=== PATIENT | female | born 1990 | race Caucasian/White ===

== ENCOUNTER 2018-04-10 09:25 | Outpatient (CLI) | payer OTHER ==
[2018-04-10 09:59] VITALS: BP 99/59
[2018-04-10 12:09] LABS: BILIRUBIN,URINE NEGATIVE (NEGATIVE); GLUCOSE, URINE (UA) NEGATIVE (NEGATIVE); KETONES,URINE (UA) NEGATIVE (NEGATIVE); LEUKOCYTE ESTERASE, URINE SMALL (NEGATIVE); NITRITE,URINE NEGATIVE (NEGATIVE); OCCULT BLOOD,URINE LARGE (NEGATIVE); PROTEIN,URINE NEGATIVE (NEGATIVE); UROBILINOGEN,URINE 1 (NORMAL) E.U./dL (NORMAL)
[2018-04-10 12:21] LABS: CLARITY,URINE CLEAR (CLEAR)
[2018-04-10 12:29] LABS: BACTERIA,URINE Rare /HPF (None Seen); SQUAMOUS EPITHELIAL CELL,UR RARE Squamous (<= Few)
--- NOTE | 2018-04-10 12:35 | Ultrasound Report ---
Reason: vaginal bleedinga at 30.2 weeks gestation Procedure Date: 04/10/2018 Accession Number: [id number] / [id number] Procedure: US - OB Limited CPT Code: FULL RESULT: EXAM: LIMITED OBSTETRICAL ULTRASOUND EXAM DATE: 04/10/2018 11:33 AM. CLINICAL HISTORY: Vaginal bleedinga at 30. 2 weeks gestation. COMPARISON: None. TECHNIQUE: Real-time sonographic evaluation of the fetus performed by the blade grinder. Multiple area representative static images were saved for review. DATING: Established EGA 30 weeks 1 day with KATELYNN 06/18/2018. GENERAL EVALUATION Bruce . Cardiac activity: 144 bpm. movement: Visualized. Presentation: Cephalic. Placenta: Posterior and fundal position. Amniotic fluid: Normal. MAYELIN 13.9 cm. MVP 4.4 cm. ANATOMY Not evaluated MATERNAL STRUCTURES Cervix is closed measuring 6.0 cm. IMPRESSION: No placental previa RADIA
== END 2018-04-10 12:50 | disposition home or self-care (01) ==
LOC: WFO 09:25 → FBP 09:28 → WFO 12:50
PROVIDERS: ATTEND Obstetrics & Gynecology
DX: Z34.83 Encounter for supervision of other normal pregnancy, third trimester (principal)
CPT/HCPCS: 76815; 81001; 81003; 87797; 99213

== ENCOUNTER 2018-05-15 15:01 | Outpatient (CLI) | payer OTHER ==
[2018-05-15 15:17] LABS: HGB - HEMOGLOBIN 11.5 g/dL (12.0-16.0); MEAN CORPUSCULAR HEMOGLOBIN 30.7 pg (27.0-31.0); MEAN CORPUSCULAR HGB CONC 34.8 g/dL (32.0-36.0); MEAN PLATELET VOLUME 8.2 fL (7.9-10.8); RED BLOOD COUNT 3.74 10^6/uL (4.20-5.40); RED CELL DISTRIBUTION WIDTH 13.2 % (12.0-15.0); WHITE BLOOD COUNT 11.1 x10^3/uL (4.8-10.8)
[2018-05-15 15:26] LABS: ALBUMIN 3.1 g/dL (3.2-5.5); ALBUMIN/GLOBULIN RATIO 0.8 (1.0-2.2); BILIRUBIN,TOTAL 0.4 mg/dL (0.2-1.0); CALCIUM 8.6 mg/dL (8.5-10.3); CREATININE 0.4 mg/dL (0.4-1.0); TOTAL PROTEIN 6.8 g/dL (6.7-8.2)
[2018-05-15 15:28] LABS: INR 1.1 (0.8-1.2); PT - PROTHROMBIN TIME 11.8 secs (9.9-12.6)
== END 2018-05-15 15:02 | disposition home or self-care (01) ==
LOC: LAB 15:01
PROVIDERS: ATTEND Nurse Practitioner Obstetrics & Gynecology
DX: R10.30 Lower abdominal pain, unspecified (principal)
CPT/HCPCS: 36415; 80053; 85027; 85384; 85610; 85730

== ENCOUNTER 2018-05-15 22:45 | Outpatient (CLI) | payer OTHER ==
--- NOTE | 2018-05-16 00:52 | Ultrasound Report ---
Reason: ABDOMINAL PAIN, LOWER Procedure Date: 05/15/2018 Accession Number: [id number] / [id number] Procedure: US - OB Limited CPT Code: FULL RESULT: EXAM: LIMITED OBSTETRICAL ULTRASOUND EXAM DATE: 05/15/2018 11:49 PM. CLINICAL HISTORY: ABDOMINAL PAIN, LOWER. COMPARISON: OB LIMITED 04/10/2018 11:15 AM. TECHNIQUE: Real-time sonographic evaluation of the fetus performed by the unemployment specialist. Multiple u.s. representative static images were saved for review. DATING: Established EGA 35 weeks 1 day with KATELYNN 06/18/2018. GENERAL EVALUATION Bruce . Cardiac activity: 163 bpm. movement: Visualized. Presentation: Cephalic. Placenta: Posterior position. Visualization limited by overlying fetus, but no evidence of placental abruption appreciated. No placenta previa. Amniotic fluid: Normal. MAYELIN 16.6 cm. MVP 5.4 cm. MATERNAL STRUCTURES The cervix measures 5 cm, and is closed. No free fluid. IMPRESSION: 1. Bruce live intrauterine with gestational age 35 weeks 1 day based on established KATELYNN. 2. No evidence of placenta previa or abruption. RADIA ADDENDUM: 05/16/18 01:02 The above findings were discussed with Dr Johnson by Dr. Neftali Sinclair at 12:45 AM on 05/16/2018.
== END 2018-05-15 22:46 | disposition home or self-care (01) ==
LOC: DI 22:45
PROVIDERS: ATTEND Nurse Practitioner Obstetrics & Gynecology
DX: O99.89 Other specified diseases and conditions complicating pregnancy, childbirth and the puerperium (principal); R10.30 Lower abdominal pain, unspecified; Z3A.35 35 weeks gestation of pregnancy
CPT/HCPCS: 76815

== ENCOUNTER 2018-05-20 11:37 | Outpatient (CLI) | payer OTHER ==
[2018-05-20 12:18] VITALS: BP 95/57
[2018-05-20 13:09] LABS: BILIRUBIN,URINE NEGATIVE (NEGATIVE); GLUCOSE, URINE (UA) NEGATIVE (NEGATIVE); KETONES,URINE (UA) NEGATIVE (NEGATIVE); LEUKOCYTE ESTERASE, URINE SMALL (NEGATIVE); NITRITE,URINE NEGATIVE (NEGATIVE); OCCULT BLOOD,URINE SMALL (NEGATIVE); PH,URINE 6.5 PH (5.0-7.5); PROTEIN,URINE TRACE mg/dL (NEGATIVE); UROBILINOGEN,URINE 2 E.U./dL (NORMAL)
[2018-05-20 13:17] LABS: BACTERIA,URINE None Seen /HPF (None Seen); CLARITY,URINE CLEAR (CLEAR); SQUAMOUS EPITHELIAL CELL,UR RARE Squamous (<= Few)
--- NOTE | 2018-05-20 14:28 | PROVIDER PROGRESS NOTE ---
Subjective - Subjective Subjective: Pt presents today WHFBP with c/o constant pelvic and perineal pain which rad iates down her legs and into her back. She denies urinary symptoms. She denies vaginal bleeding or LOF. Reports +FM. She states she has been drinking an adequate amount of fluid. Upon her arrival to L&D she states the pain at her umbilicus has nearly resolved and feels like less of an issue. She feels that her baby's head is very low in her pelvis. NST reactive - baseline 155, moderate variability, + accels, no decels. Contractions palpate mild every 6-9 minutes with soft resting tone. UA with culture if indicated ordered. Advised patient to keep phone on her so we can call her if she requires medication for management. Will initiate referral to PT. Advised increased fluid intake and rest. Advised consistent use of maternity support belt. Pt verbalized understanding and agrees to above plan. She denies further questions or concerns at this time. She was released home with precautions. Objective - Vital Signs/Intake & Output Vital Signs: Vital Signs x48h Temp Pulse Resp BP Pulse Ox 05/20/18 11:50 36.8 C 105 H 16 95/57 L 99 - Lab Results Other Labs: Lab Results x24hrs 05/20/18 Range/Units 12:35 Urine Color YELLOW Urine Clarity CLEAR (CLEAR) Urine pH 6.5 (5.0-7.5) PH Ur Specific [place] 1.020 (1.002-1.030) Urine Protein TRACE (NEGATIVE) mg/dL Urine Glucose (UA) NEGATIVE (NEGATIVE) mg/dL Urine Ketones NEGATIVE (NEGATIVE) mg/dL Urine Occult Blood SMALL H (NEGATIVE) Urine Nitrite NEGATIVE (NEGATIVE) Urine Bilirubin NEGATIVE (NEGATIVE) Urine Urobilinogen 2 H (NORMAL) E.U./dL Ur Leukocyte Esterase SMALL H (NEGATIVE) Urine RBC 6-10 H (0-5) /HPF Urine WBC 11-25 H (0-5) /HPF Ur Squamous Epith Cells RARE Squamous (<= Few) Urine Bacteria None Seen (None Seen) /HPF Urine Culture Comments INDICATED
== END 2018-05-20 12:35 | disposition home or self-care (01) ==
LOC: WFO 11:37 → FBP 11:38 → WFO 12:35
PROVIDERS: ATTEND Nurse Practitioner Obstetrics & Gynecology
DX: O47.1 False labor at or after 37 completed weeks of gestation (principal); O99.89 Other specified diseases and conditions complicating pregnancy, childbirth and the puerperium; R10.2 Pelvic and perineal pain; M79.605 Pain in left leg; M79.604 Pain in right leg; Z3A.37 37 weeks gestation of pregnancy
CPT/HCPCS: 81001; 87086; 99212

== ENCOUNTER 2018-05-22 15:27 | Outpatient (CLI) | payer OTHER ==
[2018-05-22 16:04] LABS: CREATININE 0.4 mg/dL (0.4-1.0); URIC ACID 4.1 mg/dL (2.6-7.2)
[2018-05-22 16:07] LABS: BILIRUBIN,URINE NEGATIVE (NEGATIVE); GLUCOSE, URINE (UA) NEGATIVE (NEGATIVE); KETONES,URINE (UA) NEGATIVE (NEGATIVE); LEUKOCYTE ESTERASE, URINE MODERATE (NEGATIVE); NITRITE,URINE NEGATIVE (NEGATIVE); OCCULT BLOOD,URINE SMALL (NEGATIVE); PROTEIN,URINE 30 mg/dL (NEGATIVE); UROBILINOGEN,URINE 2 E.U./dL (NORMAL)
[2018-05-22 16:09] LABS: CLARITY,URINE CLOUDY (CLEAR)
[2018-05-22 16:37] LABS: BACTERIA,URINE Many /HPF (None Seen); MUCUS,URINE Few Strands; SQUAMOUS EPITHELIAL CELL,UR FEW Squamous (<= Few)
[2018-05-23 13:02] LABS: HEPATITIS C ANTIBODY NON-REACTIVE (NON-REACTIVE)
[2018-05-23 14:14] LABS: HIV AG/AB 4TH GEN NON-REACTIVE (NON-REACTIVE)
== END 2018-05-22 15:28 | disposition home or self-care (01) ==
LOC: LAB 15:27
PROVIDERS: ATTEND Registered Nurse
DX: R03.0 Elevated blood-pressure reading, without diagnosis of hypertension (principal); R10.30 Lower abdominal pain, unspecified; Z34.90 Encounter for supervision of normal pregnancy, unspecified, unspecified trimester; R82.79 Other abnormal findings on microbiological examination of urine
CPT/HCPCS: 36415; 81001; 81599; 82565; 83615; 84450; 84550; 86592; 86803; 87086; 87389

== ENCOUNTER 2018-05-23 08:00 | Outpatient (CLI) | payer OTHER | END 2018-05-23 23:59 | disposition home or self-care (01) | LOC: LAB.R 08:00 | PROVIDERS: ATTEND Registered Nurse | DX: Z34.90 Encounter for supervision of normal pregnancy, unspecified, unspecified trimester (principal) | CPT/HCPCS: 87491; 87591; 87797 ==

== ENCOUNTER 2018-05-24 08:00 | Outpatient (CLI) | payer OTHER ==
[2018-05-24 13:28] LABS: BILIRUBIN,URINE NEGATIVE (NEGATIVE); GLUCOSE, URINE (UA) NEGATIVE (NEGATIVE); KETONES,URINE (UA) NEGATIVE (NEGATIVE); LEUKOCYTE ESTERASE, URINE SMALL (NEGATIVE); NITRITE,URINE NEGATIVE (NEGATIVE); OCCULT BLOOD,URINE MODERATE (NEGATIVE); PROTEIN,URINE TRACE mg/dL (NEGATIVE); UROBILINOGEN,URINE 2 E.U./dL (NORMAL)
[2018-05-24 13:31] LABS: CLARITY,URINE HAZY (CLEAR)
[2018-05-24 13:39] LABS: CREATININE,URINE 127.2 mg/dL; PROTEIN/CREATININE RATIO,URINE 0.4 (<=0.2)
[2018-05-24 13:41] LABS: SQUAMOUS EPITHELIAL CELL,UR FEW Squamous (<= Few)
[2018-05-24 13:42] LABS: BACTERIA,URINE Moderate /HPF (None Seen); CRYSTALS,URINE 0-2 Calcium Oxalate /LPF
== END 2018-05-24 23:59 | disposition home or self-care (01) ==
LOC: LAB.R 08:00
PROVIDERS: ATTEND Registered Nurse
DX: R10.30 Lower abdominal pain, unspecified (principal); R03.0 Elevated blood-pressure reading, without diagnosis of hypertension
CPT/HCPCS: 81001; 82570; 84156; 87086

== ENCOUNTER 2018-05-25 11:38 | Outpatient (CLI) | payer OTHER ==
[2018-05-25] MEDS ORDERED: ACETAMINOPHEN 500 MG TABLET PO ONE (12:08)
[2018-05-25] MEDS ORDERED: LACTATED RINGERS 1,000 ML IV ONE (12:14)
[2018-05-25] MEDS ORDERED: SODIUM CHLORIDE FLUSH 0.9% 10 ML SYRINGE ONE ×2 (12:17→15:31)
[2018-05-25 13:46] VITALS: BP 104/61
[2018-05-25 14:07] LABS: BASOPHILS % (AUTO) 0.4 %; EOSINOPHILS % (AUTO) 0.3 %; HGB - HEMOGLOBIN 10.8 g/dL (12.0-16.0); LYMPHOCYTES # (AUTO) 1.1 10^3/uL (1.5-3.5); LYMPHOCYTES % (AUTO) 13.6 %; MEAN CORPUSCULAR HEMOGLOBIN 30.6 pg (27.0-31.0); MEAN CORPUSCULAR HGB CONC 35.7 g/dL (32.0-36.0); MEAN CORPUSCULAR VOLUME 85.8 fL (81.0-99.0); MEAN PLATELET VOLUME 8.5 fL (7.9-10.8); MONOCYTES # (AUTO) 0.5 10^3/uL (0.0-1.0); MONOCYTES % (AUTO) 5.7 %; NEUTROPHILS # (AUTO) 6.7 10^3/uL (1.5-6.6); PLT - PLATELET COUNT 141 10^3/uL (130-450); RED BLOOD COUNT 3.54 10^6/uL (4.20-5.40); RED CELL DISTRIBUTION WIDTH 12.8 % (12.0-15.0); WHITE BLOOD COUNT 8.3 x10^3/uL (4.8-10.8)
[2018-05-25 14:21] LABS: ALBUMIN 2.6 g/dL (3.2-5.5); ALBUMIN/GLOBULIN RATIO 0.8 (1.0-2.2); ALKALINE PHOSPHATASE 150 IU/L (42-121); ALT ALANINE AMINOTRANSFERASE < 10 IU/L (10-60); AST ASPARTATE AMINOTRANSFERASE 15 IU/L (10-42); BILIRUBIN,TOTAL 0.7 mg/dL (0.2-1.0); BUN - BLOOD UREA NITROGEN 5 mg/dL (6-20); CALCIUM 8.4 mg/dL (8.5-10.3); CARBON DIOXIDE - CO2 24 mmol/L (21-32); CHLORIDE 103 mmol/L (101-111); CREATININE 0.4 mg/dL (0.4-1.0); GFR - MDRD 191 (>89); GLUCOSE 99 mg/dL (70-100); SODIUM 136 mmol/L (135-145); TOTAL PROTEIN 5.8 g/dL (6.7-8.2)
[2018-05-25 14:58] LABS: CREATININE,URINE 16.4 mg/dL
[2018-05-25 15:12] LABS: TOTAL PROTEIN,URINE TIMED < 6 mg/dL
[2018-05-25] MEDS ORDERED: HYDROcod/ACETAM 5/325 MG TABLET PO ONE (15:30)
--- NOTE | 2018-05-26 08:21 | PROCEDURE REPORT ---
Hospitalist Procedure Note - Procedure Note Procedure Note: 05/25/2018 NST Dx: 1. Proteinuria 2. False labor 3. Urinary tract infection - acute 4. Tachycardia 5. Headache 1. Pt had episode of moderately elevated BP to 130/92 in the office 05/22/2018. Pt reports she has had proteinuria since before her transfer to care at [facility]. She was advised to present to [facility] for [facility] labs as a precaution. This incident of HTN in the office was an isolated incident and there are no other incidents of HTN documented in her . Serial blood pressures 05/25/2018 104-129/61-84. 05/22/2018 Labs: Cr. 0.4 Uric Acid 4.1 AST 17 LDH 144 05/24/2018 24 hour Urine: Total protein 357 Protein/creatinine ratio 0.4 05/25/2018 Labs: Hgb 10.8 Hcg 30.4 PLT 141 Creatinine 0.4 Uric acid 3.8 ASL 15 ALT <10 Protein/creatinine ratio -not reportable 2. NST reactive FHR baseline 140s, moderate variability, + accels, no decels Intermittent contractions with back discomfort. Pt declines SVE. 3. Urinalysis shows urinary tract infection with culture >100,000 CFU. Pt denies urinary symptoms. No CVA tenderness upon examination. Rx sent to [facility] in [place]. Pt verbalized understanding. 4/5. Front lobe headache upon her arrival in addition to dizziness and feeling like she is having difficulty focusing her eyes. Pt states she ate immediately prior to her arrival here and the dizziness started only when she arrived here. Tylenol 1000mg administered PO. 1 liter LR administered via IV over 2 hours. HR tachycardic 136bpm with gradual decrease to 98 following administration of Tylenol and IV fluids. Persistant headache. BP stable/ non-hypertensive. Blood glucose 68 - encouraged intake of juice. Headache remains. Pt given [place] 5/325 3.5 hours after receiving dose of Tylenol. Pt states she feels slightly better and desires to go home at this time. [facility] warning s/sx reviewed extensively. She has a f/u appt tomorrow morning with Dr. Johnson. Reviewed plan of care with Dr. Johnson who is in agreement. Optimal timing of delivery >37.0wks gestation. No diagnosis of HTN made, thus no diagnosis of preeclampsia made. If patient continues to have persistent neurologic symptoms, will make diagnosis of preeclampsia and induce labor. Pt verbalized understanding and agrees to above plan. She denies further questions or concerns today.
== END 2018-05-25 16:10 | disposition home or self-care (01) ==
LOC: WFO 11:38 → FBP 11:40 → WFO 16:10
PROVIDERS: ATTEND Nurse Practitioner Obstetrics & Gynecology
DX: O12.10 Gestational proteinuria, unspecified trimester (principal); O23.40 Unspecified infection of urinary tract in pregnancy, unspecified trimester; O47.9 False labor, unspecified; O99.89 Other specified diseases and conditions complicating pregnancy, childbirth and the puerperium; R00.0 Tachycardia, unspecified; R51 Headache
CPT/HCPCS: 36415; 59025; 80053; 82570; 84156; 84550; 85025; 96360; 96361; 99212; A9270; J7120

== ENCOUNTER 2018-05-27 16:53 | Inpatient (IN) | payer OTHER ==
[2018-05-27] MEDS ORDERED: ACETAMINOPHEN 325 MG TABLET PO PRN (19:56)
[2018-05-27] MEDS ORDERED: ONDANSETRON 4 MG/2 ML VIAL IVP PRN (19:56)
[2018-05-27] MEDS ORDERED: SODIUM CHLORIDE FLUSH 0.9% 10 ML SYRINGE IVP PRN (19:56)
[2018-05-27] MEDS ORDERED: fentaNYL 100 MCG/2 ML VIAL IVP PRN (19:56)
[2018-05-27] MEDS ORDERED: DINOPROSTONE 10 MG SUPP VG ONE (19:56)
[2018-05-27] MEDS ORDERED: ZOLPIDEM 5 MG TABLET PO PRN (20:01)
[2018-05-27 20:24] LABS: BASOPHILS % (AUTO) 0.4 %; EOSINOPHILS % (AUTO) 0.2 %; LYMPHOCYTES # (AUTO) 1.4 10^3/uL (1.5-3.5); LYMPHOCYTES % (AUTO) 16.5 %; MEAN CORPUSCULAR HEMOGLOBIN 30.3 pg (27.0-31.0); MEAN CORPUSCULAR HGB CONC 35.1 g/dL (32.0-36.0); MEAN CORPUSCULAR VOLUME 86.2 fL (81.0-99.0); MEAN PLATELET VOLUME 8.5 fL (7.9-10.8); MONOCYTES # (AUTO) 0.5 10^3/uL (0.0-1.0); MONOCYTES % (AUTO) 6.4 %; NEUTROPHILS # (AUTO) 6.5 10^3/uL (1.5-6.6); NEUTROPHILS % (AUTO) 76.5 %; PLT - PLATELET COUNT 143 10^3/uL (130-450); RED BLOOD COUNT 3.32 10^6/uL (4.20-5.40); RED CELL DISTRIBUTION WIDTH 12.8 % (12.0-15.0); WHITE BLOOD COUNT 8.5 x10^3/uL (4.8-10.8)
[2018-05-27 20:29] LABS: BILIRUBIN,URINE NEGATIVE (NEGATIVE); GLUCOSE, URINE (UA) 250 mg/dL (NEGATIVE); KETONES,URINE (UA) 40 mg/dL (NEGATIVE); LEUKOCYTE ESTERASE, URINE SMALL (NEGATIVE); NITRITE,URINE NEGATIVE (NEGATIVE); OCCULT BLOOD,URINE MODERATE (NEGATIVE); PROTEIN,URINE 30 mg/dL (NEGATIVE); UROBILINOGEN,URINE 2 E.U./dL (NORMAL)
[2018-05-27 20:31] LABS: CLARITY,URINE HAZY (CLEAR)
[2018-05-27 20:37] LABS: CREATININE 0.5 mg/dL (0.4-1.0); URIC ACID 4.5 mg/dL (2.6-7.2)
[2018-05-27 20:38] LABS: BACTERIA,URINE Few /HPF (None Seen); MUCUS,URINE Moderate Strands; SQUAMOUS EPITHELIAL CELL,UR FEW Squamous (<= Few); WBC CLUMPS,URINE PRESENT
[2018-05-27 20:42] LABS: CREATININE,URINE 162.2 mg/dL; PROTEIN/CREATININE RATIO,URINE 0.4 (<=0.2)
--- NOTE | 2018-05-27 21:00 | PROVIDER PROGRESS NOTE ---
Subjective - Prog Note Date Prog Note Date: 05/27/18 Prog Note Time: 20:54 - Subjective Pt reports feeling: No change Subjective: Chart review of 77 additional pages from [facility] show only records from previous pregnancies. No records from [place]. Will need to draw labs. Today's labs were remarkable for proteinura. Objective - Vital Signs/Intake & Output Reviewed Vital Signs: Yes - Objective General Appearance: positive: No acute distress Eyes Bilateral: positive: Normal inspection Abdomen: positive: Non-tender (Gravid) Skin: positive: Color nml Extremities: positive: Non-tender Neurologic/Psychiatric: positive: Oriented x3 - Lab Results Fish Bones: 05/27/18 20:13 05/27/18 20:13 Other Labs: Lab Results x24hrs 05/27/18 05/27/18 05/27/18 Range/Units 20:13 20:13 20:13 WBC 8.5 (4.8-10.8) x10^3/uL RBC 3.32 L (4.20-5.40) 10^6/uL Hgb 10.0 L (12.0-16.0) g/dL Hct 28.6 L (37.0-47.0) % MCV 86.2 (81.0-99.0) fL MCH 30.3 (27.0-31.0) pg MCHC 35.1 (32.0-36.0) g/dL RDW 12.8 (12.0-15.0) % Plt Count 143 (130-450) 10^3/uL MPV 8.5 (7.9-10.8) fL Neut # (Auto) 6.5 (1.5-6.6) 10^3/uL Lymph # (Auto) 1.4 L (1.5-3.5) 10^3/uL [place] # (Auto) 0.5 (0.0-1.0) 10^3/uL Eos # (Auto) 0.0 (0.0-0.7) 10^3/uL Baso # (Auto) 0.0 (0.0-0.1) 10^3/uL Absolute Nucleated RBC 0.01 x10^3/uL Nucleated RBC % 0.1 /100WBC Creatinine 0.5 (0.4-1.0) mg/dL Estimated GFR (MDRD) 148 (>89) Uric Acid 4.5 (2.6-7.2) mg/dL AST 18 (10-42) IU/L Lactate Dehydrogenase 143 (91-225) IU/L Urine Color Urine Clarity (CLEAR) Urine pH (5.0-7.5) PH Ur Specific [place] (1.002-1.030) Urine Protein (NEGATIVE) mg/dL Urine Glucose (UA) (NEGATIVE) mg/dL Urine Ketones (NEGATIVE) mg/dL Urine Occult Blood (NEGATIVE) Urine Nitrite (NEGATIVE) Urine Bilirubin (NEGATIVE) Urine Urobilinogen (NORMAL) E.U./dL Ur Leukocyte Esterase (NEGATIVE) Urine RBC (0-5) /HPF Urine WBC (0-5) /HPF Urine WBC Clumps Ur Squamous Epith Cells (<= Few) Urine Bacteria (None Seen) /HPF Urine Mucus Ur Microscopic Review Urine Culture Comments Urine Creatinine mg/dL Ur Total Protein Timed mg/dL Protein/Creatinin Ratio (<=0.2) 05/27/18 05/27/18 Range/Units 19:30 19:30 WBC (4.8-10.8) x10^3/uL RBC (4.20-5.40) 10^6/uL Hgb (12.0-16.0) g/dL Hct (37.0-47.0) % MCV (81.0-99.0) fL MCH (27.0-31.0) pg MCHC (32.0-36.0) g/dL RDW (12.0-15.0) % Plt Count (130-450) 10^3/uL MPV (7.9-10.8) fL Neut # (Auto) (1.5-6.6) 10^3/uL Lymph # (Auto) (1.5-3.5) 10^3/uL [place] # (Auto) (0.0-1.0) 10^3/uL Eos # (Auto) (0.0-0.7) 10^3/uL Baso # (Auto) (0.0-0.1) 10^3/uL Absolute Nucleated RBC x10^3/uL Nucleated RBC % /100WBC Creatinine (0.4-1.0) mg/dL Estimated GFR (MDRD) (>89) Uric Acid (2.6-7.2) mg/dL AST (10-42) IU/L Lactate Dehydrogenase (91-225) IU/L Urine Color YELLOW Urine Clarity HAZY (CLEAR) Urine pH 6.0 (5.0-7.5) PH Ur Specific [place] >=1.030 H (1.002-1.030) Urine Protein 30 H (NEGATIVE) mg/dL Urine Glucose (UA) 250 H (NEGATIVE) mg/dL Urine Ketones 40 H (NEGATIVE) mg/dL Urine Occult Blood MODERATE H (NEGATIVE) Urine Nitrite NEGATIVE (NEGATIVE) Urine Bilirubin NEGATIVE (NEGATIVE) Urine Urobilinogen 2 H (NORMAL) E.U./dL Ur Leukocyte Esterase SMALL H (NEGATIVE) Urine RBC 6-10 H (0-5) /HPF Urine WBC >25 H (0-5) /HPF Urine WBC Clumps PRESENT Ur Squamous Epith Cells FEW Squamous (<= Few) Urine Bacteria Few (None Seen) /HPF Urine Mucus Moderate Strands Ur Microscopic Review INDICATED Urine Culture Comments INDICATED Urine Creatinine 162.2 mg/dL Ur Total Protein Timed 67 mg/dL Protein/Creatinin Ratio 0.4 H (<=0.2) Assessment/Plan - Problem List (1) Proteinuria affecting Impression: 27 yo with a 36w6d IUP. Proteinuria concerning for pre-eclampsia. Reassuring and maternal status. Will draw labs. Close monitoring for lynn pre-eclampsia. Start labetalol if BP's too high and MgSO4 for seizure prophylaxis. H&P dictated: [id number]
[2018-05-28] MEDS ORDERED: SODIUM CHLORIDE FLUSH 0.9% 10 ML SYRINGE IVP SCH (01:00)
--- NOTE | 2018-05-28 02:07 | HISTORY & PHYSICAL EXAMINATION ---
DATE OF SERVICE: 05/27/2018 IDENTIFICATION: This is a 27-year-old, G9, P3-0-5-3 with a 36 and 6/7-week intrauterine . EDC is 06/18/2018. We currently do not have a dating ultrasound. HISTORY OF PRESENT ILLNESS: The patient is a patient of [facility]. The patient has a scattered history of care, as she has had [facility]. The patient states that she started her care at about 6 weeks' gestation in [place], [place]. She then was transferred from [place] to [facility] locally at [facility]. Her first [facility] visit was on 02/24/2018. She had a total of 2 visits there and transferred over to [facility] on 05/15/2018. We do have the records from the [facility]. Unfortunately, we do not have any [facility] records from [place] and any records giving dating criteria nor the anatomical survey ultrasound. We have just called the [facility] base asking them to resend any available records that she may have. The patient has been seen for the last 3 visits of her at [facility]. The patient was noted to have what seems to be preeclampsia. She did have an isolated elevated blood pressure on 05/22/2018 at 36 weeks 1 day of 132/90. The patient states that before transferring her care from [place] to [facility], she did a 24-hour urine protein collection, which to the patient's best recollection was in the 400 mg/dL area. Again, we do not have that record. In any event, after this piece of information was discovered, the patient was evaluated by the nurse midwives for potential preeclampsia. She had preeclampsia labs drawn on 05/15/2018 show a white count of 11.1, H and H of 11.5 and 32.9, platelets of 165. PT was 11.8, INR 1.1, PTT 23.1. Fibrinogen 519. Potassium 3.5, creatinine 0.4, glucose 83, AST 17, ALT 12. She had an OB limited ultrasound at that time, which showed a single viable intrauterine with cardiac activity of 163 beats per minute. Cephalic presentation. Placenta is posterior and evidence of placenta abruption was not appreciated. There was no placenta previa. MAYELIN measured 16.6 cm with MVP of 5.4 cm. Cervix measured 5 cm and is closed. No free fluid. Measurement for estimated weight was not performed at that time. Repeat preeclampsia labs were reperformed after the patient noted an increase of headaches and dizziness in the last week. The patient recalls that she has been having some irregular headaches in the first and third trimesters. She states that these headaches start of the front of her head and radiate to the back of her head. Notably, she states that the frequency and severity of the headaches have been getting worse of late. Headaches rated to 6-7/10 pain scale, when they normally are about 5/10. The patient also states it is hard for her to focus seeing thing that are a at a distance. She denied any right upper quadrant pain or increased swelling in her extremities. Because of these symptoms, her preeclampsia labs were repeated on 05/25/2018, which revealed a white count of 8.3, hemoglobin and hematocrit of 10.8 and 30.4, platelets were 141. Potassium 3.8, creatinine 0.4, glucose 99, uric acid 3.8, AST 15, ALT less than 10. LDH 144. Urine at that time was significant for moderate occult blood, small leukocyte esterase, 11-25 RBCs, as well as WBCs. There were few squamous cells and moderate bacteria. A 24-hour urine collection was also performed, and this revealed 357 mg of protein. Given the patient's proteinuria, as well as worsening neurological symptoms, it is concerning that the patient has preeclampsia that is smoldering. We are concerned that it may progress to severe preeclampsia. At this time we have recommended to the patient that she proceed with delivery, given that she is almost full-term and the risk of having the baby continue to be in utero do not outweigh the benefits of getting delivered. I discussed with the patient that should we let her preeclampsia worsen, this may evolve to eclampsia. I recommended to the patient that we proceed at this time, particularly because the chances of the baby being immature are low. The patient is certain that she started her first visit in [place] about 6 weeks' gestation. She did have an ultrasound at that time confirming her EDC. I did discuss with the patient the risks, benefits, alternatives, indications, and expectations of cervical ripening. Hopefully, the ripening will be successful tonight and she may be converted over to induction of labor in the morning. After all of the patient's questions were answered to her satisfaction, she verbalized her desire to proceed with cervical ripening. Currently the patient is doing well and states that the baby's anticipated name is Juanito. She did have some bloody show over the weekend but denies any lynn vaginal bleeding. The patient also denies any loss of fluid. She is currently accompanied with her , Johnny, who is also the father of her third child. The patient verbalized her desire to have an epidural in labor, as well as to breastfeed after the baby is delivered. [facility]. PAST MEDICAL HISTORY: Anxiety and depression. Currently she is doing well on this. She did have a short trial of duloxetine 10 mg, which she stopped prior to conception. PAST SURGICAL HISTORY 1. Dilatation and curettage secondary to a second trimester AB. 2. [place] teeth extraction. ALLERGIES: NO KNOWN DRUG ALLERGIES. MEDICATIONS: vitamins. SOCIAL HISTORY: She denies any tobacco, alcohol or illicit drug use. The patient is to Johnny, and she has two other boys at home, as well as a daughter. The patient has the [employer] insurance. She has been given a prescription for a breast pump. PAST OBSTETRICAL HISTORY 1. Three term spontaneous vaginal deliveries. In 2012, she had a 39-week normal spontaneous vaginal delivery with an epidural of a male fetus. 2. In 2014, a 39-week gestation of a normal spontaneous vaginal delivery with an epidural was also a male fetus. It was an induction secondary to maternal discomfort. 3. In 2016, she had a 39-week gestation, delivered with a spontaneous vaginal delivery. She also received an epidural. A female fetus. It was noted that she had contractions and received steroids in the event that she would deliver prematurely. This daughter is also the daughter of Johnny, who is the father of this current gestation. 4. Three spontaneous abortions with a dilatation and curettage at about 15 weeks' gestation. This occurred in 2010. In 2011, she also had a spontaneous at 6 weeks' gestation. In 2012, she also had a spontaneous at 6 weeks' gestation. The biggest fetus she has delivered was her first child, who weighed 3912 grams. With respect to the records that we currently have: 1. She had two visits at [facility]. Her first visit was on 03/18/2018 at 26 weeks 6 days, and she was given a breast pump and a Tdap Chit. Blood pressure at the time was 107/70, and her weight was 64.7 kg. 2. Her next visit was on 04/09/2018 at 30 weeks 0 days' gestation. She noted round ligament pain. Her 1-hour Glucola was 92 and hemoglobin was 11.1. Blood pressure at that time was 104/64, weight was 68 kg. She did have a bedside ultrasound with a BPD and femur length at 29-30 weeks' gestation commensurate with her anticipated EDC of 06/18/2018. She did receive her Tdap on 03/27/2018. 3. The patient then transferred care to us at [facility]. She had three visits here. The first one was on 05/15/2018 at 35 weeks 1 day, blood pressure is 104/66. There was no proteinuria. She next had her visit on 05/22/2018 at 36 weeks 1 day, blood pressure 132/90, and no proteinuria. At that time, she denied any visual disturbances or epigastric pain. Her blood pressure was slightly elevated over her baseline. Preeclampsia labs again were obtained on that same day. 4. Her next visit was on 05/26/2018 at 36 weeks 5 days. Labs were within normal limits and unremarkable 24-hour urine collection returned as 357 mg. At that time, the patient also noted that she was having difficulty with headaches. It was at that point that the patient was recommended to undergo induction of labor. She was seen by Dr. Johnson and consented by Dr. Johnson at that time. Cervical examination on 05/26/[address] Johnson showed that she was 2 cm dilated, 20% effaced, and -3 station. PAST GYNECOLOGICAL HISTORY: She has a history of low-grade squamous intraepithelial lesion Pap smears. This was done in 2011 and this has resolved. The records are unclear if this was resolved spontaneously or if she had a cervical biopsy performed. She denies any sexually transmitted diseases. FAMILY HISTORY: Mother had cervical carcinoma. There are no other female cancers. REIVEW OF SYSTEMS: Negative unless otherwise noted. She denies fevers, chills, diarrhea or constipation. OBJECTIVE VITAL SIGNS: Blood pressure 123/80 and 115/71. GENERAL: The patient is a well-developed, well-nourished, female, in no apparent distress. She is alert and oriented x3. She is a very pleasant female. HEENT: Within normal limits. CARDIOVASCULAR: Rate is regular. No murmurs or rubs. PULMONARY: Lungs are clear to auscultation bilaterally. ABDOMEN: Gravid, nontender. EFW is 7 pounds. The baby is vertex. heart tones currently revealed that she has a baseline of 150s with a good long-term variability. There were no decelerations. The patient does have irregular contractions. Cervical examination shows she is 4 cm dilated, but very thick and high. LABORATORIES: Again are limited. On 04/02/2018, white count is 10.8, hemoglobin 11.1, platelets 160. Her antibody screen is negative. On 04/02/2018, one-hour GTT is 92. We do not have other laboratories including HIV, hepatitis B surface antigen, hepatitis C, RPR, rubella or blood type. She is GBS negative. This was performed on 05/22/2018. ASSESSMENT 1. A 27-year-old, G9, P3-0-5-3 with 36 and 6/7-week intrauterine . 2. Proteinuria with a high clinical suspicion of preeclampsia given neurological symptoms 3. Cervix remote from delivery. PLAN 1. We have requested all the [facility] from [facility]. Hopefully, this will reveal her [place] dating ultrasound, as well as her anatomical survey. Also of importance would be her laboratories. If we cannot obtain those, we will go ahead and redraw them. 2. We will repeat preeclampsia labs right now. 3. Continue close monitoring of heart tones, as well as the patient's blood pressure. We will start labetalol p.r.n. and watch out for signs and symptoms of placental abruption if her blood pressure becomes a problem. 4. Cervidil overnight with p.r.n. Ambien. 5. Epidural as needed for pain control intrapartum. 6. Should the patient evolve into fulminant preeclampsia, we will proceed to starting her on magnesium sulfate in order to minimize the chance of eclampsia. TD: 05/27/2018 21:18 CHARLES
[2018-05-28 09:11] LABS: BASOPHILS % (AUTO) 0.2 %; EOSINOPHILS % (AUTO) 0.2 %; HGB - HEMOGLOBIN 10.2 g/dL (12.0-16.0); LYMPHOCYTES # (AUTO) 1.1 10^3/uL (1.5-3.5); LYMPHOCYTES % (AUTO) 13.4 %; MEAN CORPUSCULAR HEMOGLOBIN 30.5 pg (27.0-31.0); MEAN CORPUSCULAR HGB CONC 35.7 g/dL (32.0-36.0); MEAN CORPUSCULAR VOLUME 85.4 fL (81.0-99.0); MEAN PLATELET VOLUME 8.7 fL (7.9-10.8); MONOCYTES # (AUTO) 0.3 10^3/uL (0.0-1.0); MONOCYTES % (AUTO) 3.9 %; NEUTROPHILS # (AUTO) 6.7 10^3/uL (1.5-6.6); NEUTROPHILS % (AUTO) 82.3 %; PLT - PLATELET COUNT 136 10^3/uL (130-450); RED BLOOD COUNT 3.35 10^6/uL (4.20-5.40); RED CELL DISTRIBUTION WIDTH 13.1 % (12.0-15.0); WHITE BLOOD COUNT 8.2 x10^3/uL (4.8-10.8)
[2018-05-28 09:23] LABS: URIC ACID 4.4 mg/dL (2.6-7.2)
[2018-05-28] MEDS ORDERED: LACTATED RINGERS 1,000 ML IV ONE (09:44)
[2018-05-28] MEDS ORDERED: fent/BUPIV 2 MCG/0.125% 250 ML EP ONE (09:45)
[2018-05-28] MEDS ORDERED: BUPIVACAINE 0.25% PF 10 ML VIAL ONE ×2 (09:46→15:10)
--- NOTE | 2018-05-28 09:48 | ANESTHESIA ---
Pre-Anesthesia VS, & Labs - Diagnosis Induction of labor. Possible preeclampsia - Procedure vaginal delivery Vital Signs: Temp Pulse Resp BP Pulse Ox 36.9 C 98 18 112/61 100 05/28/18 02:50 05/28/18 02:50 05/28/18 02:50 05/28/18 02:50 05/28/18 02:50 Height 5 ft 3 in Weight (kg) 71.668 kg - NPO Other (Clear liquids during labor) - Is Patient ?: Yes - Lab Results Current Lab Results: Laboratory Tests 05/28/18 09:01: Blood Type Recheck AB POSITIVE 05/28/18 09:01: ALT 10 05/28/18 09:01: Uric Acid 4.4, AST 21 05/28/18 09:01: WBC 8.2, RBC 3.35 L, Hgb 10.2 L, Hct 28.6 L, MCV 85.4, MCH 30.5, MCHC 35.7, RDW 13.1, Plt Count 136, MPV 8.7, Neut # (Auto) 6.7 H, Lymph # (Auto) 1.1 L, [place] # (Auto) 0.3, Eos # (Auto) 0.0, Baso # (Auto) 0.0, Absolute Nuclea dillan RBC 0.00, Nucleated RBC % 0.0 05/28/18 09:01: Lactate Dehydrogenase 147 05/27/18 20:13: Blood Type AB POSITIVE, Antibody Screen NEGATIVE 05/27/18 20:13: Blood Type AB POSITIVE 05/27/18 20:13: Lactate Dehydrogenase 143 05/27/18 20:13: Creatinine 0.5, Estimated GFR (MDRD) 148, Uric Acid 4.5, AST 18 05/27/18 20:13: WBC 8.5, RBC 3.32 L, Hgb 10.0 L, Hct 28.6 L, MCV 86.2, MCH 30.3, MCHC 35.1, RDW 12.8, Plt Count 143, MPV 8.5, Neut # (Auto) 6.5, Lymph # (Auto) 1.4 L, [place] # (Auto) 0.5, Eos # (Auto) 0.0, Baso # (Auto) 0.0, Absolute Nucleated RBC 0.01, Nucleated RBC % 0.1 Lab results reviewed: Yes Fish Bones: 05/28/18 09:01 05/27/18 20:13 Home Medications and Allergies Active Medications Acetaminophen (Tylenol) 650 mg PO Q6H PRN PRN Reason: Pain or Fever Fentanyl (Fentanyl) 100 mcg IVP Q1H PRN PRN Reason: PAIN Oxytocin/Sodium Chloride (Pitocin/Sodium Chloride) 500 mls @ 1 mls/hr IV TITR KIP; Protocol Ondansetron HCl (Zofran Inj) 4 mg IVP Q4HR PRN PRN Reason: Nausea / Vomiting Sodium Chloride (Normal Saline Flush 0.9%) 10 ml IVP 0100,0900,1700 KIP Sodium Chloride (Normal Saline Flush 0.9%) 10 ml IVP PRN PRN PRN Reason: NEEDED PER PROVIDER ORDERS Zolpidem Tartrate (Ambien) 10 mg PO QPM PRN PRN Reason: Insomnia Last Admin: 05/28/18 04:05 Dose: 10 mg Allergies/Adverse Reactions: Allergies Allergy/AdvReac Type Severity Reaction Status Date / Time No Known Drug Allergies Allergy Verified 05/20/18 12:20 Anes History & Medical History - Anesthetic History Anesthesia Complications: reports: No previous complications - Medical History Cardiovascular: reports: None Pulmonary: reports: None Gastrointestinal: reports: None Urinary: reports: Kidney stones (history of kidney stones) Neuro: reports: None Musculoskeletal: reports: None Endocrine/Autoimmune: reports: None Blood Disorders: reports: None Smoking Status: Former smoker (quit 10 months ago) - Surgical History Urologic: Ureterolithotomy (stones) Gynecologic: Dilation and currettage - Obstetrical History : 9 Parity: 3 Events: positive: Pre-eclampsia, Other (Platlets trending downward from 165 to 134. Risk/benefit discussed with patient. Will continue to monitor.) Exam General: Alert, Oriented x3, Cooperative, No acute distress Dental: WNL Mouth Openin Fingerbreadth Neck Mobility: Normal Mallampati classification: III Thyromental Distance: 4-6 cm Plan Anesthesia Type: Epidural Consent for Procedure(s) Verified and Reviewed: Yes Code Status: Attempt Resuscitation ASA classification: 2-Mild systemic disease Is this case an emergency?: No
--- NOTE | 2018-05-28 09:51 | PROVIDER PROGRESS NOTE ---
Subjective - Prog Note Date Prog Note Date: 05/28/18 Prog Note Time: 09:49 - Subjective Subjective: SBAR of patient's history left on Dr. Love's cell phone voice mail at 08:12. Cervidil placed last night. No overnight events noted. Objective - Vital Signs/Intake & Output Vital Signs: Vital Signs x48h Temp Pulse Resp BP Pulse Ox 05/28/18 02:50 98.4 F 98 18 112/61 100 Intake & Output: Intake & Output 05/25/18 05/26/18 05/27/18 05/28/18 23:59 23:59 23:59 23:59 Intake Total 250 Balance 250 - Lab Results Fish Bones: 05/28/18 09:01 05/27/18 20:13 Other Labs: Lab Results x24hrs 05/28/18 05/28/18 05/28/18 Range/Units 09:01 09:01 09:01 WBC (4.8-10.8) x10^3/uL RBC (4.20-5.40) 10^6/uL Hgb (12.0-16.0) g/dL Hct (37.0-47.0) % MCV (81.0-99.0) fL MCH (27.0-31.0) pg MCHC (32.0-36.0) g/dL RDW (12.0-15.0) % Plt Count (130-450) 10^3/uL MPV (7.9-10.8) fL Neut # (Auto) (1.5-6.6) 10^3/uL Lymph # (Auto) (1.5-3.5) 10^3/uL [place] # (Auto) (0.0-1.0) 10^3/uL Eos # (Auto) (0.0-0.7) 10^3/uL Baso # (Auto) (0.0-0.1) 10^3/uL Absolute Nucleated RBC x10^3/uL Nucleated RBC % /100WBC Creatinine (0.4-1.0) mg/dL Estimated GFR (MDRD) (>89) Uric Acid 4.4 (2.6-7.2) mg/dL AST 21 (10-42) IU/L ALT 10 (10-60) IU/L Lactate Dehydrogenase (91-225) IU/L Urine Color Urine Clarity (CLEAR) Urine pH (5.0-7.5) PH Ur Specific [place] (1.002-1.030) Urine Protein (NEGATIVE) mg/dL Urine Glucose (UA) (NEGATIVE) mg/dL Urine Ketones (NEGATIVE) mg/dL Urine Occult Blood (NEGATIVE) Urine Nitrite (NEGATIVE) Urine Bilirubin (NEGATIVE) Urine Urobilinogen (NORMAL) E.U./dL Ur Leukocyte Esterase (NEGATIVE) Urine RBC (0-5) /HPF Urine WBC (0-5) /HPF Urine WBC Clumps Ur Squamous Epith Cells (<= Few) Urine Bacteria (None Seen) /HPF Urine Mucus Ur Microscopic Review Urine Culture Comments Urine Creatinine mg/dL Ur Total Protein Timed mg/dL Protein/Creatinin Ratio (<=0.2) Rubella IgG Antibody IU/mL Blood Type Blood Type Recheck AB POSITIVE Antibody Screen 05/28/18 05/28/18 05/27/18 Range/Units 09:01 09:01 21:31 WBC 8.2 (4.8-10.8) x10^3/uL RBC 3.35 L (4.20-5.40) 10^6/uL Hgb 10.2 L (12.0-16.0) g/dL Hct 28.6 L (37.0-47.0) % MCV 85.4 (81.0-99.0) fL MCH 30.5 (27.0-31.0) pg MCHC 35.7 (32.0-36.0) g/dL RDW 13.1 (12.0-15.0) % Plt Count 136 (130-450) 10^3/uL MPV 8.7 (7.9-10.8) fL Neut # (Auto) 6.7 H (1.5-6.6) 10^3/uL Lymph # (Auto) 1.1 L (1.5-3.5) 10^3/uL [place] # (Auto) 0.3 (0.0-1.0) 10^3/uL Eos # (Auto) 0.0 (0.0-0.7) 10^3/uL Baso # (Auto) 0.0 (0.0-0.1) 10^3/uL Absolute Nucleated RBC 0.00 x10^3/uL Nucleated RBC % 0.0 /100WBC Creatinine (0.4-1.0) mg/dL Estimated GFR (MDRD) (>89) Uric Acid (2.6-7.2) mg/dL AST (10-42) IU/L ALT (10-60) IU/L Lactate Dehydrogenase 147 (91-225) IU/L Urine Color Urine Clarity (CLEAR) Urine pH (5.0-7.5) PH Ur Specific [place] (1.002-1.030) Urine Protein (NEGATIVE) mg/dL Urine Glucose (UA) (NEGATIVE) mg/dL Urine Ketones (NEGATIVE) mg/dL Urine Occult Blood (NEGATIVE) Urine Nitrite (NEGATIVE) Urine Bilirubin (NEGATIVE) Urine Urobilinogen (NORMAL) E.U./dL Ur Leukocyte Esterase (NEGATIVE) Urine RBC (0-5) /HPF Urine WBC (0-5) /HPF Urine WBC Clumps Ur Squamous Epith Cells (<= Few) Urine Bacteria (None Seen) /HPF Urine Mucus Ur Microscopic Review Urine Culture Comments Urine Creatinine mg/dL Ur Total Protein Timed mg/dL Protein/Creatinin Ratio (<=0.2) Rubella IgG Antibody 12.9 IU/mL Blood Type Blood Type Recheck Antibody Screen 05/27/18 05/27/18 05/27/18 Range/Units 20:13 20:13 20:13 WBC (4.8-10.8) x10^3/uL RBC (4.20-5.40) 10^6/uL Hgb (12.0-16.0) g/dL Hct (37.0-47.0) % MCV (81.0-99.0) fL MCH (27.0-31.0) pg MCHC (32.0-36.0) g/dL RDW (12.0-15.0) % Plt Count (130-450) 10^3/uL MPV (7.9-10.8) fL Neut # (Auto) (1.5-6.6) 10^3/uL Lymph # (Auto) (1.5-3.5) 10^3/uL [place] # (Auto) (0.0-1.0) 10^3/uL Eos # (Auto) (0.0-0.7) 10^3/uL Baso # (Auto) (0.0-0.1) 10^3/uL Absolute Nucleated RBC x10^3/uL Nucleated RBC % /100WBC Creatinine (0.4-1.0) mg/dL Estimated GFR (MDRD) (>89) Uric Acid (2.6-7.2) mg/dL AST (10-42) IU/L ALT (10-60) IU/L Lactate Dehydrogenase 143 (91-225) IU/L Urine Color Urine Clarity (CLEAR) Urine pH (5.0-7.5) PH Ur Specific [place] (1.002-1.030) Urine Protein (NEGATIVE) mg/dL Urine Glucose (UA) (NEGATIVE) mg/dL Urine Ketones (NEGATIVE) mg/dL Urine Occult Blood (NEGATIVE) Urine Nitrite (NEGATIVE) Urine Bilirubin (NEGATIVE) Urine Urobilinogen (NORMAL) E.U./dL Ur Leukocyte Esterase (NEGATIVE) Urine RBC (0-5) /HPF Urine WBC (0-5) /HPF Urine WBC Clumps Ur Squamous Epith Cells (<= Few) Urine Bacteria (None Seen) /HPF Urine Mucus Ur Microscopic Review Urine Culture Comments Urine Creatinine mg/dL Ur Total Protein Timed mg/dL Protein/Creatinin Ratio (<=0.2) Rubella IgG Antibody IU/mL Blood Type AB POSITIVE AB POSITIVE Blood Type Recheck Antibody Screen NEGATIVE 05/27/18 05/27/18 05/27/18 Range/Units 20:13 20:13 19:30 WBC 8.5 (4.8-10.8) x10^3/uL RBC 3.32 L (4.20-5.40) 10^6/uL Hgb 10.0 L (12.0-16.0) g/dL Hct 28.6 L (37.0-47.0) % MCV 86.2 (81.0-99.0) fL MCH 30.3 (27.0-31.0) pg MCHC 35.1 (32.0-36.0) g/dL RDW 12.8 (12.0-15.0) % Plt Count 143 (130-450) 10^3/uL MPV 8.5 (7.9-10.8) fL Neut # (Auto) 6.5 (1.5-6.6) 10^3/uL Lymph # (Auto) 1.4 L (1.5-3.5) 10^3/uL [place] # (Auto) 0.5 (0.0-1.0) 10^3/uL Eos # (Auto) 0.0 (0.0-0.7) 10^3/uL Baso # (Auto) 0.0 (0.0-0.1) 10^3/uL Absolute Nucleated RBC 0.01 x10^3/uL Nucleated RBC % 0.1 /100WBC Creatinine 0.5 (0.4-1.0) mg/dL Estimated GFR (MDRD) 148 (>89) Uric Acid 4.5 (2.6-7.2) mg/dL AST 18 (10-42) IU/L ALT (10-60) IU/L Lactate Dehydrogenase (91-225) IU/L Urine Color YELLOW Urine Clarity HAZY (CLEAR) Urine pH 6.0 (5.0-7.5) PH Ur Specific [place] >=1.030 H (1.002-1.030) Urine Protein 30 H (NEGATIVE) mg/dL Urine Glucose (UA) 250 H (NEGATIVE) mg/dL Urine Ketones 40 H (NEGATIVE) mg/dL Urine Occult Blood MODERATE H (NEGATIVE) Urine Nitrite NEGATIVE (NEGATIVE) Urine Bilirubin NEGATIVE (NEGATIVE) Urine Urobilinogen 2 H (NORMAL) E.U./dL Ur Leukocyte Esterase SMALL H (NEGATIVE) Urine RBC 6-10 H (0-5) /HPF Urine WBC >25 H (0-5) /HPF Urine WBC Clumps PRESENT Ur Squamous Epith Cells FEW Squamous (<= Few) Urine Bacteria Few (None Seen) /HPF Urine Mucus Moderate Strands Ur Microscopic Review INDICATED Urine Culture Comments INDICATED Urine Creatinine mg/dL Ur Total Protein Timed mg/dL Protein/Creatinin Ratio (<=0.2) Rubella IgG Antibody IU/mL Blood Type Blood Type Recheck Antibody Screen 05/27/18 Range/Units 19:30 WBC (4.8-10.8) x10^3/uL RBC (4.20-5.40) 10^6/uL Hgb (12.0-16.0) g/dL Hct (37.0-47.0) % MCV (81.0-99.0) fL MCH (27.0-31.0) pg MCHC (32.0-36.0) g/dL RDW (12.0-15.0) % Plt Count (130-450) 10^3/uL MPV (7.9-10.8) fL Neut # (Auto) (1.5-6.6) 10^3/uL Lymph # (Auto) (1.5-3.5) 10^3/uL [place] # (Auto) (0.0-1.0) 10^3/uL Eos # (Auto) (0.0-0.7) 10^3/uL Baso # (Auto) (0.0-0.1) 10^3/uL Absolute Nucleated RBC x10^3/uL Nucleated RBC % /100WBC Creatinine (0.4-1.0) mg/dL Estimated GFR (MDRD) (>89) Uric Acid (2.6-7.2) mg/dL AST (10-42) IU/L ALT (10-60) IU/L Lactate Dehydrogenase (91-225) IU/L Urine Color Urine Clarity (CLEAR) Urine pH (5.0-7.5) PH Ur Specific [place] (1.002-1.030) Urine Protein (NEGATIVE) mg/dL Urine Glucose (UA) (NEGATIVE) mg/dL Urine Ketones (NEGATIVE) mg/dL Urine Occult Blood (NEGATIVE) Urine Nitrite (NEGATIVE) Urine Bilirubin (NEGATIVE) Urine Urobilinogen (NORMAL) E.U./dL Ur Leukocyte Esterase (NEGATIVE) Urine RBC (0-5) /HPF Urine WBC (0-5) /HPF Urine WBC Clumps Ur Squamous Epith Cells (<= Few) Urine Bacteria (None Seen) /HPF Urine Mucus Ur Microscopic Review Urine Culture Comments Urine Creatinine 162.2 mg/dL Ur Total Protein Timed 67 mg/dL Protein/Creatinin Ratio 0.4 H (<=0.2) Rubella IgG Antibody IU/mL Blood Type Blood Type Recheck Antibody Screen
[2018-05-28] MEDS ORDERED: OXYTOCIN/SODIUM CHLORIDE 500 ML IV SCH (10:00)
--- NOTE | 2018-05-28 10:08 | PROVIDER PROGRESS NOTE ---
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 She s a 27 y.o. 37 0/7 weeks by hx of a 6 week , [place] dependent, limited OB records, but very good historian. EDC 06/18/18 by hx of 6 week US and mid trimester US with unremarkable anatomic survey, initiated care in [place], then transferred care to [facility]. Patient then transferred to [facility] and had 3 visits here. course has been unremarkable this . States had quad screen done that was negative, she has no significant medical hx. Her other pregnancies and deliveries have likewise been unremarkable. Her largest baby was 8 lbs 10 onz. and she last delivered 2 yrs and 8 months ago. This has been unremarkable except for new onset h/a and mildly elevated diastolic bp at 90 with P/C ratio of 0.4 . Has had a 24 hour urine protein >300 mg as well. Patient admitted yesterday for cervical ripening and IOL. Had cervidil placed early this morning after 0300 hours. Cx at that time was called 4 cm/thick. Patient with Category I tracing and contractions noted q 4 min. which she now describes as more painful. Cx exam by me at 0915 4/50/-3/VTX/BOWI with category I tracing and adequate pelvis, [place] 7 Lbs 4 onz. Preeclamptic bloodwork repeat this AM. LFTs normal. PLT dropped slightly from 143K to 136. BP normal at this time. GBS NEG. Impression/Plan: # 27 y.o. 37 0/7 weeks with preeclampsia in early labor, now at 4/50/- 3/VT/BOWI. BP stable at this time. # Cervidil out at 0920 by me. Pitocin augmentation as needed to maintain adequate contractions. # Patient interested in epidural for labor analgesia. Will proceed with epidural when asked for by patient. # HCT 28%: Type & Screen done. No OB hx of PPH # PLT decreased from admission from 143 to 136K. Recheck labs . # Anticipate vaginal delivery at this time. Spouse present during interview with patient and discussion about her present condition and recommendations. Patient and spouse voiced understanding of her condition and questions answered to their satisfaction. Objective - Vital Signs/Intake & Output Vital Signs: Vital Signs x48h Temp Pulse Resp BP Pulse Ox 05/28/18 02:50 36.9 C 98 18 112/61 100 Intake & Output: Intake & Output 05/25/18 05/26/18 05/27/18 05/28/18 23:59 23:59 23:59 23:59 Intake Total 250 Balance 250 - Objective General Appearance: positive: No acute distress, Alert Abdomen: positive: Non-tender, Other (Cx 4/50/-3/VTX/BOWI at 0915 Category I tracing) Back: positive: Nml inspection Skin: positive: Color nml, No rash, Warm Extremities: positive: Non-tender, Full ROM - Lab Results Fish Bones: 05/28/18 09:01 05/27/18 20:13 Other Labs: Lab Results x24hrs 05/28/18 05/28/18 05/28/18 Range/Units 09:01 09:01 09:01 WBC (4.8-10.8) x10^3/uL RBC (4.20-5.40) 10^6/uL Hgb (12.0-16.0) g/dL Hct (37.0-47.0) % MCV (81.0-99.0) fL MCH (27.0-31.0) pg MCHC (32.0-36.0) g/dL RDW (12.0-15.0) % Plt Count (130-450) 10^3/uL MPV (7.9-10.8) fL Neut # (Auto) (1.5-6.6) 10^3/uL Lymph # (Auto) (1.5-3.5) 10^3/uL [place] # (Auto) (0.0-1.0) 10^3/uL Eos # (Auto) (0.0-0.7) 10^3/uL Baso # (Auto) (0.0-0.1) 10^3/uL Absolute Nucleated RBC x10^3/uL Nucleated RBC % /100WBC Creatinine (0.4-1.0) mg/dL Estimated GFR (MDRD) (>89) Uric Acid 4.4 (2.6-7.2) mg/dL AST 21 (10-42) IU/L ALT 10 (10-60) IU/L Lactate Dehydrogenase (91-225) IU/L Urine Color Urine Clarity (CLEAR) Urine pH (5.0-7.5) PH Ur Specific [place] (1.002-1.030) Urine Protein (NEGATIVE) mg/dL Urine Glucose (UA) (NEGATIVE) mg/dL Urine Ketones (NEGATIVE) mg/dL Urine Occult Blood (NEGATIVE) Urine Nitrite (NEGATIVE) Urine Bilirubin (NEGATIVE) Urine Urobilinogen (NORMAL) E.U./dL Ur Leukocyte Esterase (NEGATIVE) Urine RBC (0-5) /HPF Urine WBC (0-5) /HPF Urine WBC Clumps Ur Squamous Epith Cells (<= Few) Urine Bacteria (None Seen) /HPF Urine Mucus Ur Microscopic Review Urine Culture Comments Urine Creatinine mg/dL Ur Total Protein Timed mg/dL Protein/Creatinin Ratio (<=0.2) Rubella IgG Antibody IU/mL Blood Type Blood Type Recheck AB POSITIVE Antibody Screen 05/28/18 05/28/18 05/27/18 Range/Units 09:01 09:01 21:31 WBC 8.2 (4.8-10.8) x10^3/uL RBC 3.35 L (4.20-5.40) 10^6/uL Hgb 10.2 L (12.0-16.0) g/dL Hct 28.6 L (37.0-47.0) % MCV 85.4 (81.0-99.0) fL MCH 30.5 (27.0-31.0) pg MCHC 35.7 (32.0-36.0) g/dL RDW 13.1 (12.0-15.0) % Plt Count 136 (130-450) 10^3/uL MPV 8.7 (7.9-10.8) fL Neut # (Auto) 6.7 H (1.5-6.6) 10^3/uL Lymph # (Auto) 1.1 L (1.5-3.5) 10^3/uL [place] # (Auto) 0.3 (0.0-1.0) 10^3/uL Eos # (Auto) 0.0 (0.0-0.7) 10^3/uL Baso # (Auto) 0.0 (0.0-0.1) 10^3/uL Absolute Nucleated RBC 0.00 x10^3/uL Nucleated RBC % 0.0 /100WBC Creatinine (0.4-1.0) mg/dL Estimated GFR (MDRD) (>89) Uric Acid (2.6-7.2) mg/dL AST (10-42) IU/L ALT (10-60) IU/L Lactate Dehydrogenase 147 (91-225) IU/L Urine Color Urine Clarity (CLEAR) Urine pH (5.0-7.5) PH Ur Specific [place] (1.002-1.030) Urine Protein (NEGATIVE) mg/dL Urine Glucose (UA) (NEGATIVE) mg/dL Urine Ketones (NEGATIVE) mg/dL Urine Occult Blood (NEGATIVE) Urine Nitrite (NEGATIVE) Urine Bilirubin (NEGATIVE) Urine Urobilinogen (NORMAL) E.U./dL Ur Leukocyte Esterase (NEGATIVE) Urine RBC (0-5) /HPF Urine WBC (0-5) /HPF Urine WBC Clumps Ur Squamous Epith Cells (<= Few) Urine Bacteria (None Seen) /HPF Urine Mucus Ur Microscopic Review Urine Culture Comments Urine Creatinine mg/dL Ur Total Protein Timed mg/dL Protein/Creatinin Ratio (<=0.2) Rubella IgG Antibody 12.9 IU/mL Blood Type Blood Type Recheck Antibody Screen 05/27/18 05/27/18 05/27/18 Range/Units 20:13 20:13 20:13 WBC (4.8-10.8) x10^3/uL RBC (4.20-5.40) 10^6/uL Hgb (12.0-16.0) g/dL Hct (37.0-47.0) % MCV (81.0-99.0) fL MCH (27.0-31.0) pg MCHC (32.0-36.0) g/dL RDW (12.0-15.0) % Plt Count (130-450) 10^3/uL MPV (7.9-10.8) fL Neut # (Auto) (1.5-6.6) 10^3/uL Lymph # (Auto) (1.5-3.5) 10^3/uL [place] # (Auto) (0.0-1.0) 10^3/uL Eos # (Auto) (0.0-0.7) 10^3/uL Baso # (Auto) (0.0-0.1) 10^3/uL Absolute Nucleated RBC x10^3/uL Nucleated RBC % /100WBC Creatinine (0.4-1.0) mg/dL Estimated GFR (MDRD) (>89) Uric Acid (2.6-7.2) mg/dL AST (10-42) IU/L ALT (10-60) IU/L Lactate Dehydrogenase 143 (91-225) IU/L Urine Color Urine Clarity (CLEAR) Urine pH (5.0-7.5) PH Ur Specific [place] (1.002-1.030) Urine Protein (NEGATIVE) mg/dL Urine Glucose (UA) (NEGATIVE) mg/dL Urine Ketones (NEGATIVE) mg/dL Urine Occult Blood (NEGATIVE) Urine Nitrite (NEGATIVE) Urine Bilirubin (NEGATIVE) Urine Urobilinogen (NORMAL) E.U./dL Ur Leukocyte Esterase (NEGATIVE) Urine RBC (0-5) /HPF Urine WBC (0-5) /HPF Urine WBC Clumps Ur Squamous Epith Cells (<= Few) Urine Bacteria (None Seen) /HPF Urine Mucus Ur Microscopic Review Urine Culture Comments Urine Creatinine mg/dL Ur Total Protein Timed mg/dL Protein/Creatinin Ratio (<=0.2) Rubella IgG Antibody IU/mL Blood Type AB POSITIVE AB POSITIVE Blood Type Recheck Antibody Screen NEGATIVE 05/27/18 05/27/18 05/27/18 Range/Units 20:13 20:13 19:30 WBC 8.5 (4.8-10.8) x10^3/uL RBC 3.32 L (4.20-5.40) 10^6/uL Hgb 10.0 L (12.0-16.0) g/dL Hct 28.6 L (37.0-47.0) % MCV 86.2 (81.0-99.0) fL MCH 30.3 (27.0-31.0) pg MCHC 35.1 (32.0-36.0) g/dL RDW 12.8 (12.0-15.0) % Plt Count 143 (130-450) 10^3/uL MPV 8.5 (7.9-10.8) fL Neut # (Auto) 6.5 (1.5-6.6) 10^3/uL Lymph # (Auto) 1.4 L (1.5-3.5) 10^3/uL [place] # (Auto) 0.5 (0.0-1.0) 10^3/uL Eos # (Auto) 0.0 (0.0-0.7) 10^3/uL Baso # (Auto) 0.0 (0.0-0.1) 10^3/uL Absolute Nucleated RBC 0.01 x10^3/uL Nucleated RBC % 0.1 /100WBC Creatinine 0.5 (0.4-1.0) mg/dL Estimated GFR (MDRD) 148 (>89) Uric Acid 4.5 (2.6-7.2) mg/dL AST 18 (10-42) IU/L ALT (10-60) IU/L Lactate Dehydrogenase (91-225) IU/L Urine Color YELLOW Urine Clarity HAZY (CLEAR) Urine pH 6.0 (5.0-7.5) PH Ur Specific [place] >=1.030 H (1.002-1.030) Urine Protein 30 H (NEGATIVE) mg/dL Urine Glucose (UA) 250 H (NEGATIVE) mg/dL Urine Ketones 40 H (NEGATIVE) mg/dL Urine Occult Blood MODERATE H (NEGATIVE) Urine Nitrite NEGATIVE (NEGATIVE) Urine Bilirubin NEGATIVE (NEGATIVE) Urine Urobilinogen 2 H (NORMAL) E.U./dL Ur Leukocyte Esterase SMALL H (NEGATIVE) Urine RBC 6-10 H (0-5) /HPF Urine WBC >25 H (0-5) /HPF Urine WBC Clumps PRESENT Ur Squamous Epith Cells FEW Squamous (<= Few) Urine Bacteria Few (None Seen) /HPF Urine Mucus Moderate Strands Ur Microscopic Review INDICATED Urine Culture Comments INDICATED Urine Creatinine mg/dL Ur Total Protein Timed mg/dL Protein/Creatinin Ratio (<=0.2) Rubella IgG Antibody IU/mL Blood Type Blood Type Recheck Antibody Screen 05/27/18 Range/Units 19:30 WBC (4.8-10.8) x10^3/uL RBC (4.20-5.40) 10^6/uL Hgb (12.0-16.0) g/dL Hct (37.0-47.0) % MCV (81.0-99.0) fL MCH (27.0-31.0) pg MCHC (32.0-36.0) g/dL RDW (12.0-15.0) % Plt Count (130-450) 10^3/uL MPV (7.9-10.8) fL Neut # (Auto) (1.5-6.6) 10^3/uL Lymph # (Auto) (1.5-3.5) 10^3/uL [place] # (Auto) (0.0-1.0) 10^3/uL Eos # (Auto) (0.0-0.7) 10^3/uL Baso # (Auto) (0.0-0.1) 10^3/uL Absolute Nucleated RBC x10^3/uL Nucleated RBC % /100WBC Creatinine (0.4-1.0) mg/dL Estimated GFR (MDRD) (>89) Uric Acid (2.6-7.2) mg/dL AST (10-42) IU/L ALT (10-60) IU/L Lactate Dehydrogenase (91-225) IU/L Urine Color Urine Clarity (CLEAR) Urine pH (5.0-7.5) PH Ur Specific Trent (1.002-1.030) Urine Protein (NEGATIVE) mg/dL Urine Glucose (UA) (NEGATIVE) mg/dL Urine Ketones (NEGATIVE) mg/dL Urine Occult Blood (NEGATIVE) Urine Nitrite (NEGATIVE) Urine Bilirubin (NEGATIVE) Urine Urobilinogen (NORMAL) E.U./dL Ur Leukocyte Esterase (NEGATIVE) Urine RBC (0-5) /HPF Urine WBC (0-5) /HPF Urine WBC Clumps Ur Squamous Epith Cells (<= Few) Urine Bacteria (None Seen) /HPF Urine Mucus Ur Microscopic Review Urine Culture Comments Urine Creatinine 162.2 mg/dL Ur Total Protein Timed 67 mg/dL Protein/Creatinin Ratio 0.4 H (<=0.2) Rubella IgG Antibody IU/mL Blood Type Blood Type Recheck Antibody Screen Assessment/Plan - Problem List (1) Preeclampsia Impression: See Above.
[2018-05-28] MEDS ORDERED: NALOXONE 0.4 MG/ML VIAL IVP PRN (10:18)
[2018-05-28] MEDS ORDERED: fent/BUPIV 2 MCG/0.125% 250 ML EP PRN ×2 (10:18→15:21)
[2018-05-28] MEDS ORDERED: ePHEDrine 50 MG/ML VIAL IVP PRN (10:18)
[2018-05-28] MEDS ORDERED: ONDANSETRON 4 MG/2 ML VIAL IVP PRN ×2 (10:18→16:46)
[2018-05-28] MEDS ORDERED: NALBUPHINE 10 MG/ML AMP IVP PRN (10:18)
--- NOTE | 2018-05-28 13:10 | PROVIDER PROGRESS NOTE ---
Subjective - Prog Note Date Prog Note Date: 05/28/18 (MOLDER FITTING) Prog Note Time: 13:07 - Subjective Subjective: Patient yamile q2-3 min on 6 miU pitocin, Category I tracing. Cx exam by me /-3/VTX/BOWI. Epidural in. BPs normal, latest 110/60. Discussed options of AROM now vs. expectant management and recommended AROM now to shorten length of labor and risks associated with prolonged labor. Patient voiced understanding and agrees with AROM. AROM performed by me at 1300 hours, with clear AF noted. Continue present care. Objective - Vital Signs/Intake & Output Vital Signs: Vital Signs x48h Resp 05/28/18 10:19 18 Intake & Output: Intake & Output 05/25/18 05/26/18 05/27/18 05/28/18 23:59 23:59 23:59 23:59 Intake Total 250 Balance 250 - Lab Results Fish Bones: 05/28/18 09:01 05/27/18 20:13 Other Labs: Lab Results x24hrs 05/28/18 05/28/18 05/28/18 Range/Units 09:01 09:01 09:01 WBC (4.8-10.8) x10^3/uL RBC (4.20-5.40) 10^6/uL Hgb (12.0-16.0) g/dL Hct (37.0-47.0) % MCV (81.0-99.0) fL MCH (27.0-31.0) pg MCHC (32.0-36.0) g/dL RDW (12.0-15.0) % Plt Count (130-450) 10^3/uL MPV (7.9-10.8) fL Neut # (Auto) (1.5-6.6) 10^3/uL Lymph # (Auto) (1.5-3.5) 10^3/uL [place] # (Auto) (0.0-1.0) 10^3/uL Eos # (Auto) (0.0-0.7) 10^3/uL Baso # (Auto) (0.0-0.1) 10^3/uL Absolute Nucleated RBC x10^3/uL Nucleated RBC % /100WBC Creatinine (0.4-1.0) mg/dL Estimated GFR (MDRD) (>89) Uric Acid 4.4 (2.6-7.2) mg/dL AST 21 (10-42) IU/L ALT 10 (10-60) IU/L Lactate Dehydrogenase (91-225) IU/L Urine Color Urine Clarity (CLEAR) Urine pH (5.0-7.5) PH Ur Specific [place] (1.002-1.030) Urine Protein (NEGATIVE) mg/dL Urine Glucose (UA) (NEGATIVE) mg/dL Urine Ketones (NEGATIVE) mg/dL Urine Occult Blood (NEGATIVE) Urine Nitrite (NEGATIVE) Urine Bilirubin (NEGATIVE) Urine Urobilinogen (NORMAL) E.U./dL Ur Leukocyte Esterase (NEGATIVE) Urine RBC (0-5) /HPF Urine WBC (0-5) /HPF Urine WBC Clumps Ur Squamous Epith Cells (<= Few) Urine Bacteria (None Seen) /HPF Urine Mucus Ur Microscopic Review Urine Culture Comments Urine Creatinine mg/dL Ur Total Protein Timed mg/dL Protein/Creatinin Ratio (<=0.2) Rubella IgG Antibody IU/mL Blood Type Blood Type Recheck AB POSITIVE Antibody Screen 05/28/18 05/28/18 05/27/18 Range/Units 09:01 09:01 21:31 WBC 8.2 (4.8-10.8) x10^3/uL RBC 3.35 L (4.20-5.40) 10^6/uL Hgb 10.2 L (12.0-16.0) g/dL Hct 28.6 L (37.0-47.0) % MCV 85.4 (81.0-99.0) fL MCH 30.5 (27.0-31.0) pg MCHC 35.7 (32.0-36.0) g/dL RDW 13.1 (12.0-15.0) % Plt Count 136 (130-450) 10^3/uL MPV 8.7 (7.9-10.8) fL Neut # (Auto) 6.7 H (1.5-6.6) 10^3/uL Lymph # (Auto) 1.1 L (1.5-3.5) 10^3/uL [place] # (Auto) 0.3 (0.0-1.0) 10^3/uL Eos # (Auto) 0.0 (0.0-0.7) 10^3/uL Baso # (Auto) 0.0 (0.0-0.1) 10^3/uL Absolute Nucleated RBC 0.00 x10^3/uL Nucleated RBC % 0.0 /100WBC Creatinine (0.4-1.0) mg/dL Estimated GFR (MDRD) (>89) Uric Acid (2.6-7.2) mg/dL AST (10-42) IU/L ALT (10-60) IU/L Lactate Dehydrogenase 147 (91-225) IU/L Urine Color Urine Clarity (CLEAR) Urine pH (5.0-7.5) PH Ur Specific [place] (1.002-1.030) Urine Protein (NEGATIVE) mg/dL Urine Glucose (UA) (NEGATIVE) mg/dL Urine Ketones (NEGATIVE) mg/dL Urine Occult Blood (NEGATIVE) Urine Nitrite (NEGATIVE) Urine Bilirubin (NEGATIVE) Urine Urobilinogen (NORMAL) E.U./dL Ur Leukocyte Esterase (NEGATIVE) Urine RBC (0-5) /HPF Urine WBC (0-5) /HPF Urine WBC Clumps Ur Squamous Epith Cells (<= Few) Urine Bacteria (None Seen) /HPF Urine Mucus Ur Microscopic Review Urine Culture Comments Urine Creatinine mg/dL Ur Total Protein Timed mg/dL Protein/Creatinin Ratio (<=0.2) Rubella IgG Antibody 12.9 IU/mL Blood Type Blood Type Recheck Antibody Screen 05/27/18 05/27/18 05/27/18 Range/Units 20:13 20:13 20:13 WBC (4.8-10.8) x10^3/uL RBC (4.20-5.40) 10^6/uL Hgb (12.0-16.0) g/dL Hct (37.0-47.0) % MCV (81.0-99.0) fL MCH (27.0-31.0) pg MCHC (32.0-36.0) g/dL RDW (12.0-15.0) % Plt Count (130-450) 10^3/uL MPV (7.9-10.8) fL Neut # (Auto) (1.5-6.6) 10^3/uL Lymph # (Auto) (1.5-3.5) 10^3/uL [place] # (Auto) (0.0-1.0) 10^3/uL Eos # (Auto) (0.0-0.7) 10^3/uL Baso # (Auto) (0.0-0.1) 10^3/uL Absolute Nucleated RBC x10^3/uL Nucleated RBC % /100WBC Creatinine (0.4-1.0) mg/dL Estimated GFR (MDRD) (>89) Uric Acid (2.6-7.2) mg/dL AST (10-42) IU/L ALT (10-60) IU/L Lactate Dehydrogenase 143 (91-225) IU/L Urine Color Urine Clarity (CLEAR) Urine pH (5.0-7.5) PH Ur Specific [place] (1.002-1.030) Urine Protein (NEGATIVE) mg/dL Urine Glucose (UA) (NEGATIVE) mg/dL Urine Ketones (NEGATIVE) mg/dL Urine Occult Blood (NEGATIVE) Urine Nitrite (NEGATIVE) Urine Bilirubin (NEGATIVE) Urine Urobilinogen (NORMAL) E.U./dL Ur Leukocyte Esterase (NEGATIVE) Urine RBC (0-5) /HPF Urine WBC (0-5) /HPF Urine WBC Clumps Ur Squamous Epith Cells (<= Few) Urine Bacteria (None Seen) /HPF Urine Mucus Ur Microscopic Review Urine Culture Comments Urine Creatinine mg/dL Ur Total Protein Timed mg/dL Protein/Creatinin Ratio (<=0.2) Rubella IgG Antibody IU/mL Blood Type AB POSITIVE AB POSITIVE Blood Type Recheck Antibody Screen NEGATIVE 05/27/18 05/27/18 05/27/18 Range/Units 20:13 20:13 19:30 WBC 8.5 (4.8-10.8) x10^3/uL RBC 3.32 L (4.20-5.40) 10^6/uL Hgb 10.0 L (12.0-16.0) g/dL Hct 28.6 L (37.0-47.0) % MCV 86.2 (81.0-99.0) fL MCH 30.3 (27.0-31.0) pg MCHC 35.1 (32.0-36.0) g/dL RDW 12.8 (12.0-15.0) % Plt Count 143 (130-450) 10^3/uL MPV 8.5 (7.9-10.8) fL Neut # (Auto) 6.5 (1.5-6.6) 10^3/uL Lymph # (Auto) 1.4 L (1.5-3.5) 10^3/uL [place] # (Auto) 0.5 (0.0-1.0) 10^3/uL Eos # (Auto) 0.0 (0.0-0.7) 10^3/uL Baso # (Auto) 0.0 (0.0-0.1) 10^3/uL Absolute Nucleated RBC 0.01 x10^3/uL Nucleated RBC % 0.1 /100WBC Creatinine 0.5 (0.4-1.0) mg/dL Estimated GFR (MDRD) 148 (>89) Uric Acid 4.5 (2.6-7.2) mg/dL AST 18 (10-42) IU/L ALT (10-60) IU/L Lactate Dehydrogenase (91-225) IU/L Urine Color YELLOW Urine Clarity HAZY (CLEAR) Urine pH 6.0 (5.0-7.5) PH Ur Specific [place] >=1.030 H (1.002-1.030) Urine Protein 30 H (NEGATIVE) mg/dL Urine Glucose (UA) 250 H (NEGATIVE) mg/dL Urine Ketones 40 H (NEGATIVE) mg/dL Urine Occult Blood MODERATE H (NEGATIVE) Urine Nitrite NEGATIVE (NEGATIVE) Urine Bilirubin NEGATIVE (NEGATIVE) Urine Urobilinogen 2 H (NORMAL) E.U./dL Ur Leukocyte Esterase SMALL H (NEGATIVE) Urine RBC 6-10 H (0-5) /HPF Urine WBC >25 H (0-5) /HPF Urine WBC Clumps PRESENT Ur Squamous Epith Cells FEW Squamous (<= Few) Urine Bacteria Few (None Seen) /HPF Urine Mucus Moderate Strands Ur Microscopic Review INDICATED Urine Culture Comments INDICATED Urine Creatinine mg/dL Ur Total Protein Timed mg/dL Protein/Creatinin Ratio (<=0.2) Rubella IgG Antibody IU/mL Blood Type Blood Type Recheck Antibody Screen 05/27/18 Range/Units 19:30 WBC (4.8-10.8) x10^3/uL RBC (4.20-5.40) 10^6/uL Hgb (12.0-16.0) g/dL Hct (37.0-47.0) % MCV (81.0-99.0) fL MCH (27.0-31.0) pg MCHC (32.0-36.0) g/dL RDW (12.0-15.0) % Plt Count (130-450) 10^3/uL MPV (7.9-10.8) fL Neut # (Auto) (1.5-6.6) 10^3/uL Lymph # (Auto) (1.5-3.5) 10^3/uL [place] # (Auto) (0.0-1.0) 10^3/uL Eos # (Auto) (0.0-0.7) 10^3/uL Baso # (Auto) (0.0-0.1) 10^3/uL Absolute Nucleated RBC x10^3/uL Nucleated RBC % /100WBC Creatinine (0.4-1.0) mg/dL Estimated GFR (MDRD) (>89) Uric Acid (2.6-7.2) mg/dL AST (10-42) IU/L ALT (10-60) IU/L Lactate Dehydrogenase (91-225) IU/L Urine Color Urine Clarity (CLEAR) Urine pH (5.0-7.5) PH Ur Specific [place] (1.002-1.030) Urine Protein (NEGATIVE) mg/dL Urine Glucose (UA) (NEGATIVE) mg/dL Urine Ketones (NEGATIVE) mg/dL Urine Occult Blood (NEGATIVE) Urine Nitrite (NEGATIVE) Urine Bilirubin (NEGATIVE) Urine Urobilinogen (NORMAL) E.U./dL Ur Leukocyte Esterase (NEGATIVE) Urine RBC (0-5) /HPF Urine WBC (0-5) /HPF Urine WBC Clumps Ur Squamous Epith Cells (<= Few) Urine Bacteria (None Seen) /HPF Urine Mucus Ur Microscopic Review Urine Culture Comments Urine Creatinine 162.2 mg/dL Ur Total Protein Timed 67 mg/dL Protein/Creatinin Ratio 0.4 H (<=0.2) Rubella IgG Antibody IU/mL Blood Type Blood Type Recheck Antibody Screen Assessment/Plan - Problem List (1) Preeclampsia Impression: # See Above. AROM clear at 1300. Continue pitocin augmentation of labor.
[2018-05-28] MEDS ORDERED: fentaNYL 100 MCG/2 ML VIAL ONE (15:10)
[2018-05-28] MEDS ORDERED: SODIUM CHLORIDE 0.9% 10 ML ONE (15:11)
--- NOTE | 2018-05-28 15:20 | ANESTHESIA PROCEDURE NOTE ---
Anesthesia Epidural Template - Exam Epidural Medication Information: Epidural Medications Medication fent/BUPIV 2mcg/Bupivacaine 0.125% Continuous Infusion Rate (mL/ 10 hr) Demand Dose Setting 4 - Other Comments Other Comments: Called for patient c/o pain on right side. She rates 7/10 with contractions. T- 12 on Right side, T-10 on Left side with sharp stimulus. Epidural dosed with 100mcg fentanyl, 5ml of PF NS and 4ml of 0.25% bupivicaine. Patient reported improvement and rates pain 4/10 with contractions. Epidural drip increased to 12ml/hr.
[2018-05-28] MEDS ORDERED: LIDOCAINE-MPF 1% 30 ML VIAL ONE ×2 (16:08→16:12)
[2018-05-28] MEDS ORDERED: LIDOCAINE-MPF 1% 2 ML AMP SUBQ ONE (16:13)
[2018-05-28] MEDS ORDERED: MAGNESIUM HYDROXIDE 2,400 MG/30 ML UDC PO PRN (16:33)
[2018-05-28] MEDS ORDERED: OXYTOCIN 10 UNIT/ML VIAL IM ONE (16:33)
--- NOTE | 2018-05-28 16:50 | PROVIDER PROGRESS NOTE ---
Subjective - Prog Note Date Prog Note Date: 05/28/18 (DELIVERY NOTE) Prog Note Time: 16:46 - Subjective Pt reports feeling: Improved Subjective: Patient progressed to C/C/-2 at 1554 hours. Delivered viable male with 8/9 at 1613 hours (weight pending) over intact perineum. Vickery placed on maternal abdomen and cord clamped x 2 and cut approx. 1 minute after delivery. Loose nuchal cord x 1 at delivery easily reduced. IV pitocin rapid infusion started after cord clamped. Placenta delivered spontanesouly at 1617 hours. Cervix and canal inspected and devoid of any lacerations. EBL 150 mL. Mother and baby doing well. Objective - Vital Signs/Intake & Output Vital Signs: Vital Signs x48h Resp 05/28/18 10:19 18 Intake & Output: Intake & Output 05/25/18 05/26/18 05/27/18 05/28/18 23:59 23:59 23:59 23:59 Intake Total 250 125 Output Total 200 Balance 250 -75 - Lab Results Fish Bones: 05/28/18 09:01 05/27/18 20:13 Other Labs: Lab Results x24hrs 05/28/18 05/28/18 05/28/18 Range/Units 09:01 09:01 09:01 WBC (4.8-10.8) x10^3/uL RBC (4.20-5.40) 10^6/uL Hgb (12.0-16.0) g/dL Hct (37.0-47.0) % MCV (81.0-99.0) fL MCH (27.0-31.0) pg MCHC (32.0-36.0) g/dL RDW (12.0-15.0) % Plt Count (130-450) 10^3/uL MPV (7.9-10.8) fL Neut # (Auto) (1.5-6.6) 10^3/uL Lymph # (Auto) (1.5-3.5) 10^3/uL [place] # (Auto) (0.0-1.0) 10^3/uL Eos # (Auto) (0.0-0.7) 10^3/uL Baso # (Auto) (0.0-0.1) 10^3/uL Absolute Nucleated RBC x10^3/uL Nucleated RBC % /100WBC Creatinine (0.4-1.0) mg/dL Estimated GFR (MDRD) (>89) Uric Acid 4.4 (2.6-7.2) mg/dL AST 21 (10-42) IU/L ALT 10 (10-60) IU/L Lactate Dehydrogenase (91-225) IU/L Urine Color Urine Clarity (CLEAR) Urine pH (5.0-7.5) PH Ur Specific [place] (1.002-1.030) Urine Protein (NEGATIVE) mg/dL Urine Glucose (UA) (NEGATIVE) mg/dL Urine Ketones (NEGATIVE) mg/dL Urine Occult Blood (NEGATIVE) Urine Nitrite (NEGATIVE) Urine Bilirubin (NEGATIVE) Urine Urobilinogen (NORMAL) E.U./dL Ur Leukocyte Esterase (NEGATIVE) Urine RBC (0-5) /HPF Urine WBC (0-5) /HPF Urine WBC Clumps Ur Squamous Epith Cells (<= Few) Urine Bacteria (None Seen) /HPF Urine Mucus Ur Microscopic Review Urine Culture Comments Urine Creatinine mg/dL Ur Total Protein Timed mg/dL Protein/Creatinin Ratio (<=0.2) Rubella IgG Antibody IU/mL Blood Type Blood Type Recheck AB POSITIVE Antibody Screen 05/28/18 05/28/18 05/27/18 Range/Units 09:01 09:01 21:31 WBC 8.2 (4.8-10.8) x10^3/uL RBC 3.35 L (4.20-5.40) 10^6/uL Hgb 10.2 L (12.0-16.0) g/dL Hct 28.6 L (37.0-47.0) % MCV 85.4 (81.0-99.0) fL MCH 30.5 (27.0-31.0) pg MCHC 35.7 (32.0-36.0) g/dL RDW 13.1 (12.0-15.0) % Plt Count 136 (130-450) 10^3/uL MPV 8.7 (7.9-10.8) fL Neut # (Auto) 6.7 H (1.5-6.6) 10^3/uL Lymph # (Auto) 1.1 L (1.5-3.5) 10^3/uL [place] # (Auto) 0.3 (0.0-1.0) 10^3/uL Eos # (Auto) 0.0 (0.0-0.7) 10^3/uL Baso # (Auto) 0.0 (0.0-0.1) 10^3/uL Absolute Nucleated RBC 0.00 x10^3/uL Nucleated RBC % 0.0 /100WBC Creatinine (0.4-1.0) mg/dL Estimated GFR (MDRD) (>89) Uric Acid (2.6-7.2) mg/dL AST (10-42) IU/L ALT (10-60) IU/L Lactate Dehydrogenase 147 (91-225) IU/L Urine Color Urine Clarity (CLEAR) Urine pH (5.0-7.5) PH Ur Specific [place] (1.002-1.030) Urine Protein (NEGATIVE) mg/dL Urine Glucose (UA) (NEGATIVE) mg/dL Urine Ketones (NEGATIVE) mg/dL Urine Occult Blood (NEGATIVE) Urine Nitrite (NEGATIVE) Urine Bilirubin (NEGATIVE) Urine Urobilinogen (NORMAL) E.U./dL Ur Leukocyte Esterase (NEGATIVE) Urine RBC (0-5) /HPF Urine WBC (0-5) /HPF Urine WBC Clumps Ur Squamous Epith Cells (<= Few) Urine Bacteria (None Seen) /HPF Urine Mucus Ur Microscopic Review Urine Culture Comments Urine Creatinine mg/dL Ur Total Protein Timed mg/dL Protein/Creatinin Ratio (<=0.2) Rubella IgG Antibody 12.9 IU/mL Blood Type Blood Type Recheck Antibody Screen 05/27/18 05/27/18 05/27/18 Range/Units 20:13 20:13 20:13 WBC (4.8-10.8) x10^3/uL RBC (4.20-5.40) 10^6/uL Hgb (12.0-16.0) g/dL Hct (37.0-47.0) % MCV (81.0-99.0) fL MCH (27.0-31.0) pg MCHC (32.0-36.0) g/dL RDW (12.0-15.0) % Plt Count (130-450) 10^3/uL MPV (7.9-10.8) fL Neut # (Auto) (1.5-6.6) 10^3/uL Lymph # (Auto) (1.5-3.5) 10^3/uL [place] # (Auto) (0.0-1.0) 10^3/uL Eos # (Auto) (0.0-0.7) 10^3/uL Baso # (Auto) (0.0-0.1) 10^3/uL Absolute Nucleated RBC x10^3/uL Nucleated RBC % /100WBC Creatinine (0.4-1.0) mg/dL Estimated GFR (MDRD) (>89) Uric Acid (2.6-7.2) mg/dL AST (10-42) IU/L ALT (10-60) IU/L Lactate Dehydrogenase 143 (91-225) IU/L Urine Color Urine Clarity (CLEAR) Urine pH (5.0-7.5) PH Ur Specific [place] (1.002-1.030) Urine Protein (NEGATIVE) mg/dL Urine Glucose (UA) (NEGATIVE) mg/dL Urine Ketones (NEGATIVE) mg/dL Urine Occult Blood (NEGATIVE) Urine Nitrite (NEGATIVE) Urine Bilirubin (NEGATIVE) Urine Urobilinogen (NORMAL) E.U./dL Ur Leukocyte Esterase (NEGATIVE) Urine RBC (0-5) /HPF Urine WBC (0-5) /HPF Urine WBC Clumps Ur Squamous Epith Cells (<= Few) Urine Bacteria (None Seen) /HPF Urine Mucus Ur Microscopic Review Urine Culture Comments Urine Creatinine mg/dL Ur Total Protein Timed mg/dL Protein/Creatinin Ratio (<=0.2) Rubella IgG Antibody IU/mL Blood Type AB POSITIVE AB POSITIVE Blood Type Recheck Antibody Screen NEGATIVE 05/27/18 05/27/18 05/27/18 Range/Units 20:13 20:13 19:30 WBC 8.5 (4.8-10.8) x10^3/uL RBC 3.32 L (4.20-5.40) 10^6/uL Hgb 10.0 L (12.0-16.0) g/dL Hct 28.6 L (37.0-47.0) % MCV 86.2 (81.0-99.0) fL MCH 30.3 (27.0-31.0) pg MCHC 35.1 (32.0-36.0) g/dL RDW 12.8 (12.0-15.0) % Plt Count 143 (130-450) 10^3/uL MPV 8.5 (7.9-10.8) fL Neut # (Auto) 6.5 (1.5-6.6) 10^3/uL Lymph # (Auto) 1.4 L (1.5-3.5) 10^3/uL [place] # (Auto) 0.5 (0.0-1.0) 10^3/uL Eos # (Auto) 0.0 (0.0-0.7) 10^3/uL Baso # (Auto) 0.0 (0.0-0.1) 10^3/uL Absolute Nucleated RBC 0.01 x10^3/uL Nucleated RBC % 0.1 /100WBC Creatinine 0.5 (0.4-1.0) mg/dL Estimated GFR (MDRD) 148 (>89) Uric Acid 4.5 (2.6-7.2) mg/dL AST 18 (10-42) IU/L ALT (10-60) IU/L Lactate Dehydrogenase (91-225) IU/L Urine Color YELLOW Urine Clarity HAZY (CLEAR) Urine pH 6.0 (5.0-7.5) PH Ur Specific [place] >=1.030 H (1.002-1.030) Urine Protein 30 H (NEGATIVE) mg/dL Urine Glucose (UA) 250 H (NEGATIVE) mg/dL Urine Ketones 40 H (NEGATIVE) mg/dL Urine Occult Blood MODERATE H (NEGATIVE) Urine Nitrite NEGATIVE (NEGATIVE) Urine Bilirubin NEGATIVE (NEGATIVE) Urine Urobilinogen 2 H (NORMAL) E.U./dL Ur Leukocyte Esterase SMALL H (NEGATIVE) Urine RBC 6-10 H (0-5) /HPF Urine WBC >25 H (0-5) /HPF Urine WBC Clumps PRESENT Ur Squamous Epith Cells FEW Squamous (<= Few) Urine Bacteria Few (None Seen) /HPF Urine Mucus Moderate Strands Ur Microscopic Review INDICATED Urine Culture Comments INDICATED Urine Creatinine mg/dL Ur Total Protein Timed mg/dL Protein/Creatinin Ratio (<=0.2) Rubella IgG Antibody IU/mL Blood Type Blood Type Recheck Antibody Screen 05/27/18 Range/Units 19:30 WBC (4.8-10.8) x10^3/uL RBC (4.20-5.40) 10^6/uL Hgb (12.0-16.0) g/dL Hct (37.0-47.0) % MCV (81.0-99.0) fL MCH (27.0-31.0) pg MCHC (32.0-36.0) g/dL RDW (12.0-15.0) % Plt Count (130-450) 10^3/uL MPV (7.9-10.8) fL Neut # (Auto) (1.5-6.6) 10^3/uL Lymph # (Auto) (1.5-3.5) 10^3/uL [place] # (Auto) (0.0-1.0) 10^3/uL Eos # (Auto) (0.0-0.7) 10^3/uL Baso # (Auto) (0.0-0.1) 10^3/uL Absolute Nucleated RBC x10^3/uL Nucleated RBC % /100WBC Creatinine (0.4-1.0) mg/dL Estimated GFR (MDRD) (>89) Uric Acid (2.6-7.2) mg/dL AST (10-42) IU/L ALT (10-60) IU/L Lactate Dehydrogenase (91-225) IU/L Urine Color Urine Clarity (CLEAR) Urine pH (5.0-7.5) PH Ur Specific [place] (1.002-1.030) Urine Protein (NEGATIVE) mg/dL Urine Glucose (UA) (NEGATIVE) mg/dL Urine Ketones (NEGATIVE) mg/dL Urine Occult Blood (NEGATIVE) Urine Nitrite (NEGATIVE) Urine Bilirubin (NEGATIVE) Urine Urobilinogen (NORMAL) E.U./dL Ur Leukocyte Esterase (NEGATIVE) Urine RBC (0-5) /HPF Urine WBC (0-5) /HPF Urine WBC Clumps Ur Squamous Epith Cells (<= Few) Urine Bacteria (None Seen) /HPF Urine Mucus Ur Microscopic Review Urine Culture Comments Urine Creatinine 162.2 mg/dL Ur Total Protein Timed 67 mg/dL Protein/Creatinin Ratio 0.4 H (<=0.2) Rubella IgG Antibody IU/mL Blood Type Blood Type Recheck Antibody Screen Assessment/Plan - Problem List (1) Preeclampsia Impression: See Above.
[2018-05-28] MEDS ORDERED: LACTATED RINGERS 1,000 ML IV SCH (17:00)
[2018-05-28] MEDS: DOCUSATE SODIUM 100 MG CAPSULE PO SCH (20:07)
[2018-05-28] MEDS: IBUPROFEN 800 MG TABLET PO PRN (20:07)
[2018-05-28] MEDS ORDERED: LIDOCAINE-MPF 1% 2 ML AMP SUBQ SCH (20:15)
[2018-05-29] MEDS: IBUPROFEN 800 MG TABLET PO PRN ×2 (05:01→13:14)
[2018-05-29] MEDS: SIMETHICONE CHEW 80 MG TABLET PO SCH (05:59)
[2018-05-29 06:37] LABS: BASOPHILS # (AUTO) 0.1 10^3/uL (0.0-0.1); BASOPHILS % (AUTO) 0.5 %; EOSINOPHILS % (AUTO) 0.3 %; HGB - HEMOGLOBIN 9.8 g/dL (12.0-16.0); LYMPHOCYTES # (AUTO) 1.2 10^3/uL (1.5-3.5); LYMPHOCYTES % (AUTO) 11.9 %; MEAN CORPUSCULAR HEMOGLOBIN 29.7 pg (27.0-31.0); MEAN CORPUSCULAR HGB CONC 34.6 g/dL (32.0-36.0); MEAN CORPUSCULAR VOLUME 85.8 fL (81.0-99.0); MEAN PLATELET VOLUME 8.4 fL (7.9-10.8); MONOCYTES # (AUTO) 0.7 10^3/uL (0.0-1.0); MONOCYTES % (AUTO) 7.1 %; NEUTROPHILS % (AUTO) 80.2 %; PLT - PLATELET COUNT 119 10^3/uL (130-450); RED BLOOD COUNT 3.31 10^6/uL (4.20-5.40); RED CELL DISTRIBUTION WIDTH 12.9 % (12.0-15.0); WHITE BLOOD COUNT 9.9 x10^3/uL (4.8-10.8)
[2018-05-29] MEDS: DOCUSATE SODIUM 100 MG CAPSULE PO SCH (08:30)
--- NOTE | 2018-05-29 11:04 | Discharge Plan ---
Discharge Plan Disposition: 01 Home, Self Care Prescriptions: Ibuprofen [Motrin] 800 mg PO Q8H PRN #45 tablet PRN Reason: Pain Diet: Regular Activity Restrictions: No Restrictions (SEE WRITTEN INSTRUCTIONS) Shower Restrictions: No Weight Bearing: Full Weight Additional Instructions or Follow Up instructions: Follow Up at [facility] in [address] Johnson for visit. No Smoking: If you smoke, Please STOP! Call for help. Follow-up with: Jose Juan Johnson MD [Primary Care Provider] -
--- NOTE | 2018-05-29 11:09 | DISCHARGE SUMMARY ---
"Discharge Summary Admit Date: 05/27/18 Discharge Date: 05/29/18 Discharging Provider: SCOTT Code Status: Attempt Resuscitation Condition at Discharge: Good Discharge Disposition: 01 Home, Self Care - DIAGNOSES Admission Diagnoses: PREECLAMPSIA 37 WEEKS GESTATION - HPI History of Present Illness: 27 y.o. G9 now P4 admitted on 05/27/18 at 36 6/7 weeks with diagnosis of preeclampsia based on diastolic bp criteria (diastolic 90) and proteinuria (P/C ratio 0.4 and 24 hr urine >300 mg). course has been essentially unremarkable. No hx of preeclampsia with other pregnancies. She is Metol[employer] dependent. - CONSULTS | PROCEDURES Procedures: Cervical Ripening Augmentation of labor with pitocin Epidural anesthesia during labor Spontaneous vaginal delivery - HOSPITAL COURSE Hospital Course: The patient was admitted the evening of 05/27/18. Baseline bloodwork was stable with a platelet count of 143K. She underwent cervidil placement by the medication tech physician the groover and striper operator of 05/28/18. Repeat PIH labs were performed on 05/28/18 with the only notable thing being a mild drop in platelet count to 136K. The patient remained normotensive throughout her hospital stay. I came on duty at 0800 hours 05/28/18. The patient's cervical exam shortly thereafter was 4/50/- 3/VTX/BOWI with a category I tracing and irregular contractions. Cervidil was removed and the patient was augmented with low dose IV pitocin. She underwent placement of an epidural and subsequent AROM clear by me. GBS Negative. She delivered at 1613 hours a viable male infant with 8/9 and weight of 8 lbs and 9.6 onz. over an intact perineum. The patient had an unremarkable postp artum course, again with normal bp. Platelet count was stable at 119K on day 1. She is being discharged to home the afternoon of day #1. - ALLERGIES Allergies/Adverse Reactions: Allergies Allergy/AdvReac Type Severity Reaction Status Date / Time No Known Drug Allergies Allergy Verified 05/20/18 12:20 - MEDICATIONS Home Medications: Ambulatory Orders Medication Instructions Recorded Confirmed Ibuprofen [Motrin] 800 mg PO Q8H PRN #45 tablet 05/29/18 - PHYSICAL EXAM AT DISCHARGE General Appearance: positive: No acute distress, Alert Eyes Bilateral: positive: Normal inspection Peripheral Pulses: positive: 2+ Abdomen: positive: Non-tender, Other (Ux firm U-4 and NT, normal lochia. ) Skin: positive: Color nml, No rash Extremities: positive: Non-tender, Full ROM Neurologic/Psychiatric: positive: Oriented x3 - LABS Result Diagrams: 05/29/18 06:20 05/27/18 20:13 - FOLLOW UP Follow Up: See Dr. Johnson at [facility] in 6 weeks for visit. - TIME SPENT Time Spent in Discharge (Minutes): 45"
[2018-05-29 16:18] VITALS: BP 111/76
--- NOTE | 2018-05-29 17:50 | Labor Flowsheet ---
Labor Flowsheet Datetime Report Generated by CPN: 05/29/2018 17:50 Datetime: 05/29/2018 16:17 VITAL SIGNS NBP Sys/Angelica/Mean (mmHg): 111 : 76 : 83 Pulse: 75 LaborFlag: Labor Datetime: 05/28/2018 18:34 SpO2 (%): 99 Datetime: 05/28/2018 16:37 Membranes Ruptured Date/Time: 05/28/2018 12:56 Datetime: 05/28/2018 16:22 Anesthesia Comments: epidural turned off Datetime: 05/28/2018 16:00 UTERINE ACTIVITY Monitor Mode: External Frequency (min): 2-3 Quality: Strong Duration (sec): 60+ Pattern: Normal: <= 5 Contractions in 10 Minutes Resting Tone (Palpate): Relaxed ASSESSMENT A Monitor Mode: External US FHR Baseline Changes: No Baseline Change Variability: Moderate 6-25 bpm Accelerations: None Decelerations: Early Category: Category I Datetime: 05/28/2018 15:54 VAGINAL EXAM Dilatation (cm): 10.0 Effacement (%): 100 Station: -2 Exam by: Dr. Love Cervix, Position: Anterior Datetime: 05/28/2018 15:22 Communication Comments: updated Dr. Love with VE and strip Datetime: 05/28/2018 15:21 Pain Presence: None/Denies Pain Assessment Comments: bolus effective. Pt. able to sit up. Datetime: 05/28/2018 15:17 Cervix, Consistency: Soft Datetime: 05/28/2018 15:08 Epidural Procedure Other: Single Dose Datetime: 05/28/2018 14:28 PAIN Pain Scale: 7 (Annotations: pain on right side. Will tilt pt. to right and incline HOB and bolus w ith PCEA.) Datetime: 05/28/2018 14:23 Temperature (C): 36.5 Datetime: 05/28/2018 14:01 FHR Baseline Rate : 135 Datetime: 05/28/2018 14:00 MEDICATIONS Pitocin (milliunits): Increased to @ 8 Datetime: 05/28/2018 13:57 Hygiene: Sophie Care; Underpad Changed; Peripad Changed Datetime: 05/28/2018 13:30 Oxygen Method: Room Air Datetime: 05/28/2018 13:27 Pitocin Checklist: At Least 1 Acceleration of 15 bpm x 15 Seconds in 30 Minutes or Adequate Variabi lity; No More than 1 Late Deceleration Occurred in Past 30 Minutes; No More than 2 Variable Decelerat ions > 60 Seconds in Duration and decreasing >60 bpm in 30 minutes; No More than 5 Uterine Contractio ns in 10 Minutes for any 20 Minute Interval; Uterus Palpates Soft between Contractions Datetime: 05/28/2018 13:15 Monitor Interventions for UA: [place] Adjusted Datetime: 05/28/2018 13:03 Patient Position/Activity: High Fowlers Datetime: 05/28/2018 12:56 Membrane Status: Ruptured Membranes Rupture Method: Artificial Amniotic Fluid Color: Clear Amniotic Fluid Amount: Moderate Amniotic Fluid Odor: None Membrane Comments: DrEarlene Love Datetime: 05/28/2018 12:43 TEACHING Instructional Method: Verbal Plan of Care: Plan of Care Discussed; Labor Unit Routine: Monitoring Labor/Induction: Artificial Rupture of Membranes; Antibiotic Use COMMUNICATION Communication: Provider at Bedside Datetime: 05/28/2018 11:59 I/O Interventions: Ice Chips Given Patient Care Comments: peanut ball placed Datetime: 05/28/2018 10:27 Medications: Pitocin Datetime: 05/28/2018 10:15 Contraction Comments: palpated Datetime: 05/28/2018 10:03 Epidural Procedure: Loading Dose Datetime: 05/28/2018 09:44 ANESTHESIA Anesthesia Plans: Epidural Datetime: 05/28/2018 09:36 Pain Type: Cramping Pain Location: Abdomen; Back Comfort Measures: Breathing/Relaxation Datetime: 05/28/2018 09:16 Vaginal Exam Comments: cervidil removed Datetime: 05/28/2018 08:30 Monitor Interventions for FHR: Ultrasound Adjusted Datetime: 05/28/2018 08:10 Comments: maternal heart recorded. Mom sitting up and eating. US readjusted. Will cont. to monit or. Datetime: 05/28/2018 07:55 Temperature Route: Oral Datetime: 05/28/2018 03:41 Vaginal Bleeding: None Cervical Ripening Agents: Cervidil Datetime: 05/28/2018 02:51 Stage of : Labor Respirations: 18 Pain Goal: 6 Pain Relief Measures: Comfort Measures Pain Coping: Talking Through Contractions Pain Management: Epidural Datetime: 05/28/2018 02:50 MATERNAL ASSESSMENT Level of Consciousness: Fully Conscious DTR's/Clonus: DTRs 2+; No Clonus Headache: Denies Breath Sounds, Left: Clear and Equal Breath Sounds, Right: Clear and Equal Nausea/Vomiting: Denies RUQ Epigastric Pain: Denies Datetime: 05/27/2018 21:55 PATIENT CARE IV/Blood Work: IV Started; IV Saline Locked
== END 2018-05-29 17:00 | disposition home or self-care (01) | DRG 807 ==
LOC: WFO 16:53 → FBP 16:56 → WFO 20:22 → OBSVTOIN 05-28 10:40
PROVIDERS: ADMIT Obstetrics & Gynecology; ATTEND Obstetrics & Gynecology
PROC: 10E0XZZ Delivery of Products of Conception, External Approach (ICD-10-PCS; principal; 2018-05-28)
PROC: 10907ZC Drainage of Amniotic Fluid, Therapeutic from Products of Conception, Via Natural or Artificial Opening (ICD-10-PCS; 2018-05-28)
DX: O14.94 Unspecified pre-eclampsia, complicating childbirth (principal); Z37.0 Single live birth; O69.81X0 Labor and delivery complicated by cord around neck, without compression, not applicable or unspecified; Z3A.36 36 weeks gestation of pregnancy
CPT/HCPCS: 36415; 59200; 81001; 81003; 82565; 82570; 83615; 84156; 84450; 84460; 84550; 85025; 86762; 86780; 86803; 86850; 86900; 86901; 87086; 87340; 87389

== ENCOUNTER 2018-06-01 10:13 | Inpatient (IN) | payer OTHER ==
[2018-06-01 11:10] LABS: BASOPHILS % (AUTO) 0.4 %; EOSINOPHILS # (AUTO) 0.1 10^3/uL (0.0-0.7); HGB - HEMOGLOBIN 10.2 g/dL (12.0-16.0); LYMPHOCYTES # (AUTO) 1.1 10^3/uL (1.5-3.5); LYMPHOCYTES % (AUTO) 12.5 %; MEAN CORPUSCULAR HEMOGLOBIN 29.8 pg (27.0-31.0); MEAN CORPUSCULAR HGB CONC 34.3 g/dL (32.0-36.0); MEAN CORPUSCULAR VOLUME 86.8 fL (81.0-99.0); MEAN PLATELET VOLUME 9.3 fL (7.9-10.8); MONOCYTES # (AUTO) 0.4 10^3/uL (0.0-1.0); MONOCYTES % (AUTO) 4.2 %; NEUTROPHILS # (AUTO) 7.5 10^3/uL (1.5-6.6); NEUTROPHILS % (AUTO) 81.9 %; PLT - PLATELET COUNT 188 10^3/uL (130-450); RED BLOOD COUNT 3.42 10^6/uL (4.20-5.40); RED CELL DISTRIBUTION WIDTH 13.3 % (12.0-15.0); WHITE BLOOD COUNT 9.2 x10^3/uL (4.8-10.8)
[2018-06-01 11:44] LABS: ALBUMIN 2.6 g/dL (3.2-5.5); ALBUMIN/GLOBULIN RATIO 0.8 (1.0-2.2); BILIRUBIN,TOTAL 0.6 mg/dL (0.2-1.0); CREATININE 0.5 mg/dL (0.4-1.0); TOTAL PROTEIN 5.9 g/dL (6.7-8.2)
[2018-06-01 12:01] LABS: BILIRUBIN,URINE NEGATIVE (NEGATIVE); GLUCOSE, URINE (UA) NEGATIVE (NEGATIVE); KETONES,URINE (UA) NEGATIVE (NEGATIVE); LEUKOCYTE ESTERASE, URINE NEGATIVE (NEGATIVE); NITRITE,URINE NEGATIVE (NEGATIVE); OCCULT BLOOD,URINE LARGE (NEGATIVE); PH,URINE 6.5 PH (5.0-7.5); PROTEIN,URINE NEGATIVE (NEGATIVE); UROBILINOGEN,URINE 0.2 (NORMAL) E.U./dL (NORMAL)
[2018-06-01 12:03] LABS: CLARITY,URINE HAZY (CLEAR)
[2018-06-01 12:13] LABS: CREATININE,URINE 59.1 mg/dL; PROTEIN/CREATININE RATIO,URINE 0.4 (<=0.2)
[2018-06-01 12:16] LABS: BACTERIA,URINE Many /HPF (None Seen); MUCUS,URINE Few Strands; SQUAMOUS EPITHELIAL CELL,UR MANY Squamous (<= Few)
[2018-06-01] MEDS: LACTATED RINGERS 1,000 ML IV SCH (14:01)
[2018-06-01] MEDS: MAGNESIUM SULFATE 2 GRAM 2 GM/50 ML BAG IV SCH ×2 (14:01→14:26)
[2018-06-01] MEDS ORDERED: MAGNESIUM SULFATE IN WATER 20 GM/500 ML IV.SOLN IV SCH (14:39)
--- NOTE | 2018-06-01 14:58 | HISTORY & PHYSICAL EXAMINATION ---
Chief Complaint - Chief Complaint Chief Complaint: visual changes History of Present Illness - History of Present Illness HPI Comment/Other: Came in today for a weight check for her . Complained to RN about a new severe ANDREWS she woke with this morning. Also visual changes spots that obscured her vision totally for a time. Current ANDREWS is mild. No upper abdominal pain. More swelling in the legs--much more than the day after delivery. PMH: nephrolithiasis, recurrent loss PSH: D&C x1. Lithotripsy x1 left side Meds: PNV and ibuprofen Allergies: NKDA SH: no t/e/d. 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 ROS: Otherwise feeling well. No fevers, no URI sx. well. Mood is OK. No problems with breasts, urination, or defecation. No heavy bleeding. OB: . Term x4. 15w demise of unknown etiology. 3 early SABs care was in [place] and then here for her last remaining visits. Admitted at 36w6d for ripening due to mild-range BP and P:C of 0.4 Delivered the following day 05/28/18, epidural, 8#9oz, vaginal. No need for magnesium or for antihypertensives. Discharged on 05/29, uncomplicated. O: AVSS except for some BP in mild range Alert, NAD Cor RRR no murmurs Lungs CTA bilat Abd soft, nt/nd. Fundus 17w nontender. Neuro 3+ DTR patellar. 2 beats of clonus Edema: 2+ to knee Labs Plts 119 --> 188 AST 18-->95 ALT 10-->54 P:C 0.4 --> 0.4 A/P: 27yo PPD #4 s/p induced at 37w for preeclampsia without severe symptoms. Now with severe preelcampsia by neuro symptoms. AST now frankly abnormal, edema is new, ANDREWS and visual changes are new. Plts have improved and P:C is stable. --Admit for 24h of magnesium for seizure prophyaxis. --Mag checks q2h. I/Os q4h. OK to get up with help only. Repeat labs in AM. --Otherwise anticipate supporting patient in routine care. Her i nfant was also readmitted today for bilirubin tx. 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 Meds/Allgy - Home Medications Home Medications: Ambulatory Orders Medication Instructions Recorded Confirmed Ibuprofen [Motrin] 800 mg PO Q8H PRN #45 tablet 05/29/18 - Allergies Allergies/Adverse Reactions: Allergies Allergy/AdvReac Type Severity Reaction Status Date / Time No Known Drug Allergies Allergy Verified 05/20/18 12:20 Exam - Vital Signs Vital Signs: Vital Signs x48h Temp Pulse Resp BP Pulse Ox 06/01/18 14:37 80 18 116/68 98 06/01/18 14:30 73 18 122/68 06/01/18 14:24 20 138/76 H 98 06/01/18 14:17 68 18 129/83 H 98 06/01/18 14:12 73 18 98 06/01/18 14:00 123/86 H 06/01/18 12:47 116/70 06/01/18 12:14 53 L 138/68 H 06/01/18 11:45 58 L 136/73 H 06/01/18 11:30 58 L 137/85 H 06/01/18 11:15 59 L 134/80 H 06/01/18 10:56 132/83 H 06/01/18 10:23 98.4 F 63 16 115/65 99 Conclusion/Plan - Lab Results Fish Bones: 06/01/18 10:55 06/01/18 11:27 Core Measures - DVT/VTE - Prophylaxis VTE/DVT Device ordered at admit?: Yes
[2018-06-01] MEDS ORDERED: LORATADINE 10 MG TABLET PO SCH (21:00)
[2018-06-01] MEDS ORDERED: diphenhydrAMINE INJ 50 MG/ML VIAL ONE (23:17)
[2018-06-01] MEDS ORDERED: diphenhydrAMINE INJ 50 MG/ML VIAL IVP SCH (23:45)
[2018-06-01] MEDS ORDERED: diphenhydrAMINE 25 MG CAPSULE PO SCH (23:45)
--- NOTE | 2018-06-01 23:56 | CONSULTATION NOTE ---
Referring Provider Name of Referring Provider:: Cielo Macias Consult Date: 06/01/18 Chief Complaint - Chief Complaint Chief Complaint: left cheek swelling History of Present Illness - Admitted From Admitted From:: [facility] ED - History Obtained From Records Reviewed: yes History obtained from: patient and chart - History of Present Illness HPI Comment/Other: Patient is a 27 y/o female who is s/p delivery on 05/28/18 who presented t0 the hospital on 06/01/18 for a weight check for her new born. She mentioned severe headache when she woke up this morning and visual spots that obscured her vision totally for a time. She was admitted and started on Magnesium sulfate. Later this evening it was noted that she had some facial swelling over her right cheek which was progressing to involve her right ear. We are consulted for medical management of the facial swelling. At bedside the patient is resting comfortably and breathing on room air with no difficulty. She first noticed the swelling around 7:30 pm on 06/01/18. She denied eating anything new or starting any new medication other than the Magnesium sulfate today. She is on an antibiotic whose name she does not remember. It was prescribed for UTI. She has taken it for 7 out of 10 days so far. She denies any new lotion or trauma to the area. The area is non-pruiritic and not painful to palpation. There is no puncture alvin to suggest and insect bite. She denies chest pain, MARYBETH, abd pain, nausea, vomiting, fever or chills. She reports improvement in her leg swelling since presentation to the hospital. The rest of her history is unremarkable. 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 Meds/Allgy - Home Medications Home Medications: Ambulatory Orders Medication Instructions Recorded Confirmed Ibuprofen [Motrin] 800 mg PO Q8H PRN #45 tablet 05/29/18 - Allergies Allergies/Adverse Reactions: Allergies Allergy/AdvReac Type Severity Reaction Status Date / Time No Known Drug Allergies Allergy Verified 05/20/18 12:20 Review of Systems - Constitutional Constitutional: denies: Fatigue, Fever, Chills, Weakness, Diaphoresis - Eyes Eyes: reports: Blurred vision, Spots in vision - Ears, Nose & Throat Ears, Nose & Throat: denies: Tinnitus, Vertigo, Nasal discharge, Sore throat, Hoarseness - Cardiovascular Cariovascular: reports: Edema. denies: Irregular heart rate, Palpitations, Lightheadedness, Syncope, Exertional dyspnea - Respiratory Respiratory: denies: Cough, Sputum production, Wheezing, SOB at rest, SOB with exertion - Gastrointestinal Gastrointestinal: denies: Abdominal pain, Abdominal distention, Constipation, Nausea, Vomiting - Genitourinary Genitourinary: denies: Dysuria, Frequency, Urgency, Hematuria, Incontinence - Musculoskeletal Musculoskeletal: denies: Muscle pain, Muscle aches, Stiffness, Limited range of motion, Muscle weakness - Integumentary Integumentary: denies: Rash, Pruritis, Dryness, Lumps, Pigment changes - Neurological Neurological: denies: General weakness, Headache, Dizziness - Psychiatric Psychiatric: denies: Depression, Anxiety - Endocrine Endocrine: denies: Polyuria, Polydypsia - Hematologic/Lymphatic Hematologic/Lymphatic: denies: Bruising, Petechiae Exam - Vital Signs Vital Signs: Vital Signs x48h Temp Pulse Resp BP Pulse Ox 06/01/18 23:35 86 16 133/85 H 99 06/01/18 22:54 103 H 18 135/90 H 99 06/01/18 22:25 98 16 120/89 H 98 06/01/18 21:23 83 16 123/81 H 99 06/01/18 20:31 86 16 122/78 98 06/01/18 19:46 36.9 C 94 16 113/78 99 06/01/18 18:29 83 17 129/60 100 06/01/18 18:25 80 16 121/80 100 06/01/18 17:30 114/74 06/01/18 17:02 99 18 131/101 H 95 06/01/18 16:55 99 18 126/86 H 98 06/01/18 16:08 99 06/01/18 16:07 129/98 H 06/01/18 16:00 18 135/85 H - Physical Exam General Appearance: positive: No acute distress, Alert Eyes Bilateral: positive: Normal inspection, PERRL, EOMI, No lid inflammation, No scleral icterus ENT: positive: ENT inspection nml, No signs of dehydration Neck: positive: Nml inspection, No JVD, Trachea midline Respiratory: positive: Chest non-tender. negative: Wheezes, Rales, Rhonchi Cardiovascular: positive: Regular rate & rhythm, No murmur. negative: Tachycardia Abdomen: positive: Non-tender, No distention, Tenderness. negative: Nml bowel sounds, Guarding, Rebound Back: positive: Nml inspection Skin: positive: Other (right cheek swelling). negative: Color nml (facial redness: right cheek) Extremities: positive: Non-tender, Nml appearance, Pedal edema (trace to +1) Neurologic/Psychiatric: positive: Oriented x3 Conclusion/Plan - Diagnosis Diagnosis: Right-sided facial swelling - Plan Plan: Likely 2/2 and allergic reaction Allergen/ agent undetermined Will hold/ stop any new medication Magnesium sulphate stopped. Will verify antibiotic in the am Recommend stopping antibiotic. Patient started on benadryl IV. Close monitoring. If worsening swelling or MARYBETH Will administer dexamethasone 10mg IV - Lab Results Fish Bones: 06/01/18 10:55 06/01/18 11:27
[2018-06-02] MEDS: LACTATED RINGERS 1,000 ML IV SCH (03:01)
[2018-06-02] MEDS: ACETAMINOPHEN 325 MG TABLET PO PRN ×2 (03:12→07:40)
[2018-06-02 06:12] LABS: HGB - HEMOGLOBIN 10.4 g/dL (12.0-16.0); MEAN CORPUSCULAR HEMOGLOBIN 30.3 pg (27.0-31.0); MEAN CORPUSCULAR HGB CONC 35.3 g/dL (32.0-36.0); MEAN CORPUSCULAR VOLUME 85.8 fL (81.0-99.0); MEAN PLATELET VOLUME 8.1 fL (7.9-10.8); RED BLOOD COUNT 3.44 10^6/uL (4.20-5.40); RED CELL DISTRIBUTION WIDTH 13.2 % (12.0-15.0); WHITE BLOOD COUNT 8.2 x10^3/uL (4.8-10.8)
[2018-06-02 06:27] LABS: ALBUMIN 2.5 g/dL (3.2-5.5); ALBUMIN/GLOBULIN RATIO 0.8 (1.0-2.2); BILIRUBIN,TOTAL 0.4 mg/dL (0.2-1.0); CREATININE 0.5 mg/dL (0.4-1.0); TOTAL PROTEIN 5.6 g/dL (6.7-8.2)
[2018-06-02] MEDS ORDERED: SODIUM CHLORIDE FLUSH 0.9% 10 ML SYRINGE ONE (07:43)
--- NOTE | 2018-06-02 07:51 | PROVIDER PROGRESS NOTE ---
Subjective - Subjective Subjective: S: feeling MUCH better. No headache, no visual changes. Swelling has improved. No upper abdominal pain. Feeling well . Baby's jaundice is improved. No changes with bleeding, , mood, or defecation. No dysuria. Pt reports that she did NOT take antibiotics after her delivery--not inpatient or at home. O: AVSS, no elevated BP Alert, smiling, NAD Right ear swollen, warm, and pink. Extends to right cheekbone. No clear demarcation of margins. No streaking. No rash, no lesions. Pt with a cartilage ear piercing on the right side that is well-formed well-healed. Lungs CTA Abd soft, nt/nd Fundus NT 14w LE: 1+ edema ankle Neuro: 2+ DTR, 1 beat clonus Labs: will edit note. Plts are stable. AST or ALT is the same. The other has increased a bit but not above the other. A/P: P4 PPD #5 s/p induced VD at term for preecl without severe features. Readmitted with severe PP preeclampsia. Developed right ear swelling of unknown etiology about 7 hours after starting magnesium tx for seizure prophylaxis. Swelling progressed to affect the cheek. Medicine consulted and thought it was a medication reaction. Pt has not taken her antibiotic in 5 days and reaction was acute so doubt abx reaction. I've not seen a magnesium reaction like this in the past. However the issues appears inflammatory and not infectious. No further progression of inflammation since IV benadryl was given. Medicine recommended IV dexamethasone last hs, ordered by me today, OK with as it is just one dose. --Pt counseled that etiology of swelling is not clear, to return to ER immediately PRN worsening. --Will monitor today. Preeclampsia has improved though pt only received 12 hours of magnesium. No symptoms, less edema, reflexes now normal, labs are stable. Baby needs to stay until this afternoon. Will saline lock and change BP to q4h. Follow up in 3d outpatient. Monitor until discharge. Routine PP care--doing well. S/p Tdap and flu vax this . Had varicella infection in childhood. Objective - Vital Signs/Intake & Output Vital Signs: Vital Signs x48h Temp Pulse Resp BP Pulse Ox 06/02/18 07:32 98.1 F 74 16 121/85 H 96 06/02/18 06:00 82 16 128/86 H 98 06/02/18 05:00 63 112/71 97 06/02/18 04:00 98.2 F 80 16 128/84 H 98 06/02/18 03:00 14 132/77 H 97 06/02/18 02:00 16 132/77 H 96 06/02/18 01:11 75 18 131/85 H 98 06/02/18 01:00 77 116/76 96 Intake & Output: Intake & Output 05/30/18 05/31/18 06/01/18 06/02/18 23:59 23:59 23:59 23:59 Intake Total 752.024 5457 Output Total 2640 600 Balance -1690.833 925 - Lab Results Fish Bones: 06/02/18 06:05 06/02/18 06:05 Other Labs: Lab Results x24hrs 06/02/18 06/02/18 06/01/18 Range/Units 06:05 06:05 11:56 WBC 8.2 (4.8-10.8) x10^3/uL RBC 3.44 L (4.20-5.40) 10^6/uL Hgb 10.4 L (12.0-16.0) g/dL Hct 29.5 L (37.0-47.0) % MCV 85.8 (81.0-99.0) fL MCH 30.3 (27.0-31.0) pg MCHC 35.3 (32.0-36.0) g/dL RDW 13.2 (12.0-15.0) % Plt Count 183 (130-450) 10^3/uL MPV 8.1 (7.9-10.8) fL Neut # (Auto) (1.5-6.6) 10^3/uL Lymph # (Auto) (1.5-3.5) 10^3/uL [place] # (Auto) (0.0-1.0) 10^3/uL Eos # (Auto) (0.0-0.7) 10^3/uL Baso # (Auto) (0.0-0.1) 10^3/uL Absolute Nucleated RBC x10^3/uL Nucleated RBC % /100WBC Sodium 137 (135-145) mmol/L Potassium 4.0 (3.5-5.0) mmol/L Chloride 105 (101-111) mmol/L Carbon Dioxide 25 (21-32) mmol/L Anion Gap 7.0 (6-13) BUN 6 (6-20) mg/dL Creatinine 0.5 (0.4-1.0) mg/dL Estimated GFR (MDRD) 148 (>89) Glucose 95 (70-100) mg/dL Calcium 7.0 L (8.5-10.3) mg/dL Total Bilirubin 0.4 (0.2-1.0) mg/dL AST 95 H (10-42) IU/L ALT 65 H (10-60) IU/L Alkaline Phosphatase 119 (42-121) IU/L Total Protein 5.6 L (6.7-8.2) g/dL Albumin 2.5 L (3.2-5.5) g/dL Globulin 3.1 (2.1-4.2) g/dL Albumin/Globulin Ratio 0.8 L (1.0-2.2) Urine Color Urine Clarity (CLEAR) Urine pH (5.0-7.5) PH Ur Specific Cement (1.002-1.030) Urine Protein (NEGATIVE) mg/dL Urine Glucose (UA) (NEGATIVE) mg/dL Urine Ketones (NEGATIVE) mg/dL Urine Occult Blood (NEGATIVE) Urine Nitrite (NEGATIVE) Urine Bilirubin (NEGATIVE) Urine Urobilinogen (NORMAL) E.U./dL Ur Leukocyte Esterase (NEGATIVE) Urine RBC (0-5) /HPF Urine WBC (0-5) /HPF Ur Squamous Epith Cells (<= Few) Urine Bacteria (None Seen) /HPF Urine Mucus Urine Culture Comments Urine Creatinine 59.1 mg/dL Ur Total Protein Timed 21 mg/dL Protein/Creatinin Ratio 0.4 H (<=0.2) Blood Type Antibody Screen 06/01/18 06/01/18 06/01/18 Range/Units 11:56 11:27 11:20 WBC (4.8-10.8) x10^3/uL RBC (4.20-5.40) 10^6/uL Hgb (12.0-16.0) g/dL Hct (37.0-47.0) % MCV (81.0-99.0) fL MCH (27.0-31.0) pg MCHC (32.0-36.0) g/dL RDW (12.0-15.0) % Plt Count (130-450) 10^3/uL MPV (7.9-10.8) fL Neut # (Auto) (1.5-6.6) 10^3/uL Lymph # (Auto) (1.5-3.5) 10^3/uL [place] # (Auto) (0.0-1.0) 10^3/uL Eos # (Auto) (0.0-0.7) 10^3/uL Baso # (Auto) (0.0-0.1) 10^3/uL Absolute Nucleated RBC x10^3/uL Nucleated RBC % /100WBC Sodium 135 (135-145) mmol/L Potassium 3.8 (3.5-5.0) mmol/L Chloride 105 (101-111) mmol/L Carbon Dioxide 24 (21-32) mmol/L Anion Gap 6.0 (6-13) BUN 7 (6-20) mg/dL Creatinine 0.5 (0.4-1.0) mg/dL Estimated GFR (MDRD) 148 (>89) Glucose 87 (70-100) mg/dL Calcium 8.0 L (8.5-10.3) mg/dL Total Bilirubin 0.6 (0.2-1.0) mg/dL AST 95 H (10-42) IU/L ALT 54 (10-60) IU/L Alkaline Phosphatase 119 (42-121) IU/L Total Protein 5.9 L (6.7-8.2) g/dL Albumin 2.6 L (3.2-5.5) g/dL Globulin 3.3 (2.1-4.2) g/dL Albumin/Globulin Ratio 0.8 L (1.0-2.2) Urine Color YELLOW Urine Clarity HAZY (CLEAR) Urine pH 6.5 (5.0-7.5) PH Ur Specific Cement 1.015 (1.002-1.030) Urine Protein NEGATIVE (NEGATIVE) mg/dL Urine Glucose (UA) NEGATIVE (NEGATIVE) mg/dL Urine Ketones NEGATIVE (NEGATIVE) mg/dL Urine Occult Blood LARGE H (NEGATIVE) Urine Nitrite NEGATIVE (NEGATIVE) Urine Bilirubin NEGATIVE (NEGATIVE) Urine Urobilinogen 0.2 (NORMAL) (NORMAL) E.U./dL Ur Leukocyte Esterase NEGATIVE (NEGATIVE) Urine RBC 11-25 H (0-5) /HPF Urine WBC 6-10 H (0-5) /HPF Ur Squamous Epith Cells MANY Squamous H (<= Few) Urine Bacteria Many H (None Seen) /HPF Urine Mucus Few Strands Urine Culture Comments NOT INDICATED Urine Creatinine mg/dL Ur Total Protein Timed mg/dL Protein/Creatinin Ratio (<=0.2) Blood Type AB POSITIVE Antibody Screen NEGATIVE 06/01/18 Range/Units 10:55 WBC 9.2 (4.8-10.8) x10^3/uL RBC 3.42 L (4.20-5.40) 10^6/uL Hgb 10.2 L (12.0-16.0) g/dL Hct 29.7 L (37.0-47.0) % MCV 86.8 (81.0-99.0) fL MCH 29.8 (27.0-31.0) pg MCHC 34.3 (32.0-36.0) g/dL RDW 13.3 (12.0-15.0) % Plt Count 188 (130-450) 10^3/uL MPV 9.3 (7.9-10.8) fL Neut # (Auto) 7.5 H (1.5-6.6) 10^3/uL Lymph # (Auto) 1.1 L (1.5-3.5) 10^3/uL [place] # (Auto) 0.4 (0.0-1.0) 10^3/uL Eos # (Auto) 0.1 (0.0-0.7) 10^3/uL Baso # (Auto) 0.0 (0.0-0.1) 10^3/uL Absolute Nucleated RBC 0.00 x10^3/uL Nucleated RBC % 0.0 /100WBC Sodium (135-145) mmol/L Potassium (3.5-5.0) mmol/L Chloride (101-111) mmol/L Carbon Dioxide (21-32) mmol/L Anion Gap (6-13) BUN (6-20) mg/dL Creatinine (0.4-1.0) mg/dL Estimated GFR (MDRD) (>89) Glucose (70-100) mg/dL Calcium (8.5-10.3) mg/dL Total Bilirubin (0.2-1.0) mg/dL AST (10-42) IU/L ALT (10-60) IU/L Alkaline Phosphatase (42-121) IU/L Total Protein (6.7-8.2) g/dL Albumin (3.2-5.5) g/dL Globulin (2.1-4.2) g/dL Albumin/Globulin Ratio (1.0-2.2) Urine Color Urine Clarity (CLEAR) Urine pH (5.0-7.5) PH Ur Specific [place] (1.002-1.030) Urine Protein (NEGATIVE) mg/dL Urine Glucose (UA) (NEGATIVE) mg/dL Urine Ketones (NEGATIVE) mg/dL Urine Occult Blood (NEGATIVE) Urine Nitrite (NEGATIVE) Urine Bilirubin (NEGATIVE) Urine Urobilinogen (NORMAL) E.U./dL Ur Leukocyte Esterase (NEGATIVE) Urine RBC (0-5) /HPF Urine WBC (0-5) /HPF Ur Squamous Epith Cells (<= Few) Urine Bacteria (None Seen) /HPF Urine Mucus Urine Culture Comments Urine Creatinine mg/dL Ur Total Protein Timed mg/dL Protein/Creatinin Ratio (<=0.2) Blood Type Antibody Screen
[2018-06-02] MEDS ORDERED: PRENATAL VITAMIN TABLET PO SCH (08:00)
[2018-06-02] MEDS: SODIUM CHLORIDE FLUSH 0.9% 10 ML SYRINGE IVP PRN ×2 (08:06→08:23)
[2018-06-02] MEDS ORDERED: DEXAMETHASONE 10 MG/ML VIAL IVP SCH (09:00)
[2018-06-02 15:25] VITALS: BP 121/73
--- NOTE | 2018-06-03 20:21 | DISCHARGE SUMMARY ---
Physician: Cielo Angelo MD DATE OF ADMISSION: 06/01/2018 DATE OF DISCHARGE: 06/02/2018 Note: Discharge date dictated does not match record. ADMISSION DIAGNOSIS: preeclampsia, severe. DISCHARGE DIAGNOSES 1. preeclampsia, severe. 2. Possible allergic reaction to magnesium sulfate. OPERATIONS AND PROCEDURES: None. HOSPITAL COURSE: Patient was admitted for severe preeclampsia 4 days status post an induc ed vaginal delivery. Her delivery was at 37 weeks and 0 days for preeclampsia without severe feature s. She did not require any magnesium or antihypertensive therapy. She had an uncomplicated dischar ge on 05/29/2017. On 06/01/2018, she arrived for a baby weight check and complained of a severe head ache and visual changes. She was evaluated and found to have severe preeclampsia with symptoms of he adache and visual changes, elevated AST, persistently elevated urine protein to creatinine ratio of 0 .4. Her blood pressures were in the normal to mild range. Her platelets and ALT were normal. The patient was admitted for seizure prophylaxis with magnesium sulfate therapy. At first, this went well, but after 6 hours of treatment, the patient developed unilateral ear warmth, redness, and swel ling. She received a dose of Claritin, and the problem persisted and began to involve the right kayla k. At that point, the magnesium was stopped, and the patient received 50 mg of Benadryl IV. Interna l Medicine was consulted, and they thought that this was likely a medication reaction. She received 10 mg of dexamethasone IV x1 for this. At the time that the magnesium was turned off, the patient fe lt remarkably better. She did not have any further headaches or visual changes. Her blood pressures were all in the normotensive range. Her labs were stable on discharge. DISCHARGE MEDICATIONS: Resume normal home medications. Nothing new given. PLAN: Follow up in [address] Angelo. DISPOSITION: Home. CONDITION: Good. TD: 06/03/2018 12:42
--- NOTE | 2018-06-04 12:25 | Discharge Plan ---
Discharge Plan Disposition: 01 Home, Self Care Condition: Good Diet: Regular Activity Restrictions: pelvic rest x 6w Shower Restrictions: No Driving Restrictions: No Instruction Topics: Preeclampsia No Smoking: If you smoke, Please STOP! Call for help. Follow-up with: Cielo Angelo MD [Provider Admit Priv/Credential] - 1 Week ()
== END 2018-06-02 16:17 | disposition home or self-care (01) | DRG 776 ==
LOC: WFO 10:13 → FBP 10:17 → WFO 12:23 → FBP 12:24
PROVIDERS: ADMIT Obstetrics & Gynecology; ATTEND Internal Medicine
DX: O14.15 Severe pre-eclampsia, complicating the puerperium (principal); O9A.23 Injury, poisoning and certain other consequences of external causes complicating the puerperium; T47.4X5A Adverse effect of other laxatives, initial encounter; Z87.442 Personal history of urinary calculi
CPT/HCPCS: 36415; 80053; 81001; 82570; 84156; 85025; 85027; 86850; 86900; 86901; 99213; A9270; J1200; J7120; 87086